=== PATIENT | female | born 1965 | race Caucasian/White ===

== ENCOUNTER 2019-11-26 01:41 | Day surgery (SDC) | payer BC, SELFPAY ==
[2019-11-18 13:53] VITALS: BMI 23.9
--- NOTE | 2019-11-26 11:06 | WPDANESEPPF ---
Anes - Initial Pre Proc Eval Procedure: Operation Date: 11/26/19 12:00 Proposed Procedures p Esophagogastroduodenoscopy - Mayito Francois DO Date/Time: 11/26/19 11:06 Surgeon: Mayito Francois DO Pre Op Diagnosis: Nausea Patient Data Age: 54 Gender: F Height: 5 ft 3 in Weight: 61.3 kg Allergies Allergy/AdvReac Type Severity Reaction Status Date / Time sulfamethoxazole Allergy Intermediate Swelling Verified 11/26/19 11:06 sulfamethizole Allergy Unknown Facial Verified 11/26/19 11:06 swelling trimethoprim Allergy Unknown Facial Verified 11/26/19 11:06 swelling Home Medications Medication Instructions Recorded Confirmed Type alprazolam 0.25 mg tablet 0.25 mg PO BID PRN 09/16/19 11/18/19 History glycopyrrolate 1 mg tablet 1 mg PO BID-TID 09/16/19 11/18/19 History budesonide 3 mg PO DAILY 11/18/19 11/18/19 History estradiol 2 mg PO DAILY 11/18/19 11/18/19 History Patient hx anesthesia problems: post op nausea/vomiting Family hx anesthesia problems: none PMFSH Past Medical History Medical History Fibromyalgia Irritable bowel syndrome Tinea corporis Family History Family History Mother Hypertension Acute myocardial infarction Cerebrovascular accident Family history of malignant neoplasm Father Hypertension Family history of cardiac disorder Grandparent Cerebrovascular accident Family history of congestive heart failure, Onset Age: 84 Social History Social History Smoking status: Never smoker Alcohol intake: never Anes - Eval Final PreProcedure Day of Procedure 11/26/19 11:06 Patient weight: normal Heart: regular rate and rhythm Lungs: clear to auscultation Airway: Mallampati scale class II Neurological: alert and oriented Last oral intake: >/= 8 hours ASA classification: II Emergent: no Anesthetic plan: proceed Anesthesia type and monitoring: general GIVS and standard monitoring Informed Consent: The patient's anesthetic plan and its attendant risks and benefits were discussed with the patient/family/POA. Questions were solicited and answers provided to the satisfaction of the patient/family/POA.
[2019-11-26 11:07] VITALS: BP 133/65; PULSE 66; RESP 16; TEMP 36.8; O2SAT 99; BMI 24.3
[2019-11-26] MEDS: LACTATED RINGERS 1,000 ML 150 ML IV CONT (11:16)
--- NOTE | 2019-11-26 11:21 | PM.IMHP ---
H&P: HPI History of Present Illness Chief complaint: Nausea Narrative: Mecca Aleman is a 54 year old female presents for EGD today. She has new onset nausea. She denies any dysphagia, odynophagia, acid reflux or heartburn. She says this began when she starting having new onset diarrhea. She has previously been diagnosed with lymphocytic colitis in 06/2019 and was controlled on robinol daily. Most recently the diarrhea returned and was placed on budesonide. her diarrhea is better and her BM are back to baseline. She said her nausea has improved somewhat but not the best. She denies abnormal weight loss, fever or chills. She has never had an EGD before. Review of Systems Review of Systems: All systems reviewed & are unremarkable except as noted in HPI and below PMFSH Past Medical History Medical History (Updated 11/26/19 @ 11:25 by Shannan Trejo, TELEVISION STATION MANAGER) Fibromyalgia Irritable bowel syndrome Tinea corporis Surgical History Surgical History (Updated 11/26/19 @ 11:25 by Shannan Trejo, TELEVISION STATION MANAGER) History of ankle surgery Hx of abdominal hysterectomy Hx of appendectomy Hx of colonoscopy Hx of tonsillectomy Family History Family History Mother Hypertension Acute myocardial infarction Cerebrovascular accident Family history of malignant neoplasm Father Hypertension Family history of cardiac disorder Grandparent Cerebrovascular accident Family history of congestive heart failure, Onset Age: 84 Social History Social History Smoking status: Never smoker Alcohol intake: never Meds Home Medications and Allergies Home Medications Medication Instructions Recorded Confirmed Type alprazolam 0.25 mg tablet 0.25 mg PO BID PRN 09/16/19 11/18/19 History glycopyrrolate 1 mg tablet 1 mg PO BID-TID 09/16/19 11/18/19 History budesonide 3 mg PO DAILY 11/18/19 11/18/19 History estradiol 2 mg PO DAILY 11/18/19 11/18/19 History Allergies Allergy/AdvReac Type Severity Reaction Status Date / Time sulfamethoxazole Allergy Intermediate Swelling Verified 11/26/19 11:06 sulfamethizole Allergy Unknown Facial Verified 11/26/19 11:06 swelling trimethoprim Allergy Unknown Facial Verified 11/26/19 11:06 swelling Vital Signs Vital Signs - 24 hr 11/26/19 11:07 Temperature 36.8 C Pulse Rate 66 Respiratory Rate 16 Blood Pressure 133/65 Pulse Oximetry 99 Exam Const: General: cooperative, healthy appearing, comfortable, alert and awake Nutritional Appearance: average body habitus Orientation/consciousness: oriented to person, oriented to place, oriented to time and patient oriented x3 Limitations: no limitations HENMT: Head: normal to inspection and normocephalic Mouth: Yes Normal oral and palatal mucosa present and Yes moist mucous membranes Neck: Neck: normal visual inspection, supple and no JVD Carotids: no bruits Resp: Effort & Inspection: normal respiratory effort and no respiratory distress Auscultation: clear to auscultation bilaterally Cardio: Rate: regular rate Rhythm: regular rhythm Heart sounds: S1 normal heart sound present, S2 normal heart sound present, no gallops, no murmurs and no rubs GI: Inspection: normal to inspection GI Palp: No abdominal tenderness and No No hepatosplenomegaly present Percussion: Yes normal to percussion Auscultation: normal bowel sounds Rectal Exam: deferred Skin: General skin exam: normal color Lesions: no lesions Rashes: no rashes Neuro: General: oriented to person, oriented to place, oriented to time, patient oriented x3 and moves all extremities Cognition (Neuro): normal cognition Speech: normal speech Gait exam (Neuro): Normal gait present Extrem: General: normal to inspection Psych: Appearance: grossly normal Mental Status: mental status grossly normal Speech and movement: Normal speech and movement present Affec
[2019-11-26 13:07] VITALS: BP 109/61; PULSE 72; RESP 17; O2SAT 97
[2019-11-26 13:17] VITALS: BP 122/66; PULSE 67; RESP 17; O2SAT 97
[2019-11-26 13:27] VITALS: BP 132/74; PULSE 64; RESP 17; O2SAT 97
== END 2019-11-26 13:48 | disposition home or self-care (01) ==
PROVIDERS: PCP Family Medicine; Visit Provider Internal Medicine Gastroenterology
PROC: 0DJ08ZZ Inspection of Upper Intestinal Tract, Via Natural or Artificial Opening Endoscopic (ICD-10-PCS; CPT 43235; principal; 2019-11-26 12:00)
DX: R11.0 Nausea (principal); K31.7 Polyp of stomach and duodenum; K58.9 Irritable bowel syndrome, unspecified; M79.7 Fibromyalgia
CPT/HCPCS: 43239; 87081; 88305; J2704; J7120

== ENCOUNTER 2020-11-25 07:32 | Outpatient (CLI) | payer BC, SELFPAY ==
--- NOTE | ~2020-11-25 | US_ITS ---
EXAMINATION: US abdomen complete EXAM DATE: 11/25/2020 08:07 INDICATION: Right upper quadrant pain. TECHNIQUE: Multiple grayscale and Doppler images of the complete abdomen were obtained (by a technolo gist who performed the scan) and subsequently reviewed. There is no prior study for comparison. FINDINGS: The abdominal aorta is normal in caliber. Visualized portion IVC is patent. The pancreatic head a nd body are normal in appearance. The pancreatic tail is not visualized. The liver has normal echogenicity and contour. There are no focal liver lesions identified. There is no evidence of intrahepatic biliary duct dilation. Portal venous flow was seen in the hepatopedal , normal direction and has normal Doppler waveform. Common bile duct measures 4 mm, which is normal. The gallbladder wall is normal in thickness, with ex pected amount of distention. No sonographic evidence of pericholecystic fluid. There is no cholelit hiases. Technologist performing exam reports patient did not demonstrate sonographic Jimenez's sign. Please note that this sign is less reliable in patients who have received pain medication. Right kidney: There is normal contour and echogenicity. It measures 9.7 x 4.8 x 4.2 centimeters. T here are no focal renal lesions identified. There is no hydronephrosis. Left kidney: There is normal contour and echogenicity. It measures 11.2 x 4.9 x 5.5 centimeters. T here are no focal renal lesions identified. There is no hydronephrosis. The spleen measures 8 centimeters and is morphologically normal. IMPRESSION: 1. Unremarkable complete abdominal ultrasound exam. Reviewed, dictated and finalized at location A. ORIAN LITERATURE PROFESSOR
== END 2020-11-25 07:33 | disposition home or self-care (01) ==
PROVIDERS: PCP Family Medicine; Visit Provider Internal Medicine Gastroenterology
DX: R10.11 Right upper quadrant pain (principal)
CPT/HCPCS: 76700

== ENCOUNTER 2021-01-03 11:41 | Outpatient (CLI) | payer BC, SELFPAY ==
--- NOTE | ~2021-01-03 | NM_ITS ---
EXAMINATION: NM hepatobiliary wo pharm DATE: 01/03/2021 14:36 INDICATION: Right upper quadrant abdominal pain. COMPARISON: CT abdomen and pelvis 06/24/2019 TECHNIQUE: 4.9 mCi Tc-99m mebrofenin (Choletec) was administered intravenously. Scintigraphic images of the abdomen were obtained for one hour. Then, the patient drank 8 oz Ensure, and imaging was cont inued for 60 minutes. FINDINGS: There is normal clearance of radiotracer from the blood pool. There is homogeneous tracer u ptake by the liver. Activity progresses to the bowel and gallbladder. Gallbladder ejection fraction (GBEF) was 64%. Note that with this technique, normal GBEF >= 33%. IMPRESSION: 1. Normal hepatobiliary scintigraphy. Reviewed, dictated and finalized at location A. ECTION TELLER
== END 2021-01-03 11:42 | disposition home or self-care (01) ==
PROVIDERS: PCP Family Medicine; Visit Provider Internal Medicine Gastroenterology
DX: R10.11 Right upper quadrant pain (principal)
CPT/HCPCS: 78226; A9537

== ENCOUNTER 2021-01-12 08:58 | Outpatient (CLI) | payer BC, SELFPAY ==
--- NOTE | ~2021-01-12 | MM_ITS ---
EXAMINATION: MM screening [facility] BI w charbel HISTORY: Screening TECHNIQUE: Craniocaudal and mediolateral oblique 3-D tomosynthesis images were obtained and synthetic 2-D images were generated. CAD analysis was submitted and interpreted. COMPARISON: Comparison to multiple prior studies sequentially, with oldest reviewed study dated 04/2013. BREAST PARENCHYMAL COMPOSITION: The breasts are heterogenously dense, which may obscure small masses. FINDINGS: There is a developing mass in the lower outer quadrant of the left breast. The right breast is stable without evidence for malignancy. IMPRESSION: 1. Developing left breast mass, lower outer quadrant overlying the pectoralis muscle posteriorly. 2. Additional mammographic views and possible breast ultrasound are recommended. BI-RADS Category 0: Incomplete: Needs additional imaging evaluation. Reviewed, dictated and finalized at location A. IMPRESSION: 1. Developing left breast mass, lower outer quadrant overlying the pectoralis m uscle posteriorly. 2. Additional mammographic views and possible breast ultrasound are recommended . BI-RADS Category 0: Incomplete: Needs additional imaging evaluation.
== END 2021-01-12 08:59 | disposition home or self-care (01) ==
LOC: ANHIMG 09:00
PROVIDERS: PCP Family Medicine; Visit Provider Obstetrics & Gynecology
DX: Z12.31 Encounter for screening mammogram for malignant neoplasm of breast (principal); R92.8 Other abnormal and inconclusive findings on diagnostic imaging of breast
CPT/HCPCS: 77063; 77067

== ENCOUNTER 2021-02-03 11:29 | Outpatient (CLI) | payer BC, SELFPAY ==
--- NOTE | ~2021-02-03 | MMUS_ITS ---
EXAMINATION: MM diagnostic mammo unilat LT, US breast LT complete HISTORY: Developing left breast mass at lower outer quadrant reported on 01/12/2021 screening mammogra m TECHNIQUE: Additional 3-D tomosynthesis images of the left breast were performed and synthetic 2-D im ages were generated. CAD analysis was submitted and interpreted. High resolution complete left breast ultrasound was performed. COMPARISON: 01/12/2021 bilateral digital screening mammogram 03/21/2018 diagnostic left mammogram and limited left breast ultrasound BREAST PARENCHYMAL COMPOSITION: There are scattered areas of fibroglandular density. FINDINGS: MAMMOGRAPHIC FINDINGS: There is a biopsy marker of the left breast; history of prior benign left breast biopsy. There is posterior density related to prior breast implant no suspicious reproducible mass is evident . No malignant calcification. ULTRASOUND: At 3:00 5 cm from the nipple there is a parallel circumscribed hypoechoic solid lesion with fatty hil us; lesion measures approximately 6.5 x 21.6 x 15 mm. The cortex appears uniform density and thicknes s. The appearance suggests a benign lymph node. 6 month diagnostic left mammogram and left breast ult rasound follow-up are recommended. IMPRESSION: 1. Probably benign findings 2. 6 month diagnostic left mammogram and left breast ultrasound follow-up are recommended. BI-RADS category 3, probably benign findings. Reviewed, dictated and finalized at location A. IMPRESSION: 1. Probably benign findings 2. 6 month diagnostic left mammogram and left breast ultrasound follow-up are r ecommended. BI-RADS category 3, probably benign findings.
== END 2021-02-03 11:30 | disposition home or self-care (01) ==
LOC: ANHIMG 11:30
PROVIDERS: PCP Family Medicine; Visit Provider Obstetrics & Gynecology
DX: R92.8 Other abnormal and inconclusive findings on diagnostic imaging of breast (principal)
CPT/HCPCS: 76641; 77065

== ENCOUNTER 2021-06-20 12:55 | Outpatient (CLI) | payer BC, SELFPAY ==
--- NOTE | ~2021-06-20 | CT_ITS ---
EXAMINATION: CT chest abdomen pelvis w con DATE: 06/20/2021 13:51 INDICATION: Generalized abdominal pain. Abdominal pain radiating to back with fatty foods. Recent lar ge weight loss. TECHNIQUE: Computed tomography (CT) of the chest, abdomen, and pelvis was performed with 100 cc Omnip aque 350 intravenous contrast. Automated exposure control and iterative reconstruction technique were employed. Exam dose: 258.30 mGy-cm total exam DLP. COMPARISON: 11/25/2020 abdominal ultrasound examination 06/24/2019 CT abdomen pelvis FINDINGS: CHEST CT: Normal heart size. No thoracic aortic aneurysm or dissection. The thyroid gland appears normal. No hi lar or mediastinal mass lesion or lymphadenopathy. No pericardial or pleural effusion. No pulmonary i nfiltrate or consolidation. No pulmonary mass lesion is evident. ABDOMEN/PELVIS CT: The liver, spleen, pancreas, gallbladder, bile ducts, pancreatic duct, and adrenal glands and kidneys are unremarkable. Normal caliber of the abdominal aorta. No intraperitoneal or retroperitoneal or pelvic mass lesion or adenopathy or ascites. The urinary bladder appears normal. Status post hysterectomy. There is no evidence of bowel obstruction, bowel wall thickening, pneumatosis or intraperitoneal free air. Small nonspecific amount of free fluid in the dependent pelvis. Severe degenerative disc disease in lower cervical spine. Mild likely chronic loss of height and anterior wedging of T11 and T12 and L1. These may be developme ntal or due to old mild compression fracture deformities. Prominent multilevel degenerative disc disease of the lumbar spine, relatively sparing only L4. There is associated 4 mm-5 retrolisthesis at L2-3 and L3-4. IMPRESSION: Status post hysterectomy Degenerative changes of the cervical, thoracic and lumbar spine Reviewed, dictated and finalized at Location A. Reviewed, dictated and finalized at location A.
== END 2021-06-20 12:56 | disposition home or self-care (01) ==
PROVIDERS: PCP Family Medicine; Visit Provider Nurse Practitioner Family
DX: R10.84 Generalized abdominal pain (principal); R63.4 Abnormal weight loss; M50.30 Other cervical disc degeneration, unspecified cervical region; M51.34 Other intervertebral disc degeneration, thoracic region; M51.36 Other intervertebral disc degeneration, lumbar region
CPT/HCPCS: 71260; 74177; Q9967

== ENCOUNTER 2022-01-20 14:08 | Outpatient (CLI) | payer BC, SELFPAY ==
--- NOTE | ~2022-01-20 | MM_ITS ---
EXAMINATION: MM screening [facility] BI w charbel HISTORY: Screening TECHNIQUE: Craniocaudal and mediolateral oblique 3-D tomosynthesis images were obtained and synthetic 2-D images were generated. CAD analysis was submitted and interpreted. COMPARISON: Comparison to multiple prior studies sequentially, with oldest reviewed study dated 04/15. BREAST PARENCHYMAL COMPOSITION: The breasts are extremely dense, which lowers the sensitivity of mamm ography FINDINGS: There are developing periareolar asymmetries in the right breast. The left breast is stable without evidence for malignancy. IMPRESSION: 1. Developing asymmetries in the periareolar location of the right breast. 2. Additional mammographic views and possible breast ultrasound are recommended. BI-RADS Category 0: Incomplete: Needs additional imaging evaluation. Reviewed, dictated and finalized at location A. IMPRESSION: 1. Developing asymmetries in the periareolar location of the right breast. 2. Additional mammographic views and possible breast ultrasound are recommended . BI-RADS Category 0: Incomplete: Needs additional imaging evaluation.
== END 2022-01-20 14:09 | disposition home or self-care (01) ==
PROVIDERS: PCP Family Medicine; Visit Provider Obstetrics & Gynecology Gynecology
DX: Z12.31 Encounter for screening mammogram for malignant neoplasm of breast (principal); R92.8 Other abnormal and inconclusive findings on diagnostic imaging of breast
CPT/HCPCS: 77063; 77067

== ENCOUNTER 2022-02-23 11:49 | Outpatient (CLI) | payer BC, SELFPAY ==
--- NOTE | ~2022-02-23 | MMUS_ITS ---
EXAMINATION: MM diagnostic [facility] RT w charbel, US breast RT limited HISTORY: Follow-up TECHNIQUE: Additional 3-D tomosynthesis images of the right breast were performed and synthetic 2-D i mages were generated. CAD analysis was submitted and interpreted. High resolution Limited right breas t ultrasound was performed. COMPARISON: Comparison to multiple prior studies sequentially, with oldest reviewed study dated 03/21. BREAST PARENCHYMAL COMPOSITION: The breasts are extremely dense, which lowers the sensitivity of mamm ography FINDINGS: MAMMOGRAPHIC FINDINGS: The subareolar location of the right breast is less dense with spot compression views. No discrete ma ss,, architectural distortion or suspicious calcifications in the right breast. ULTRASOUND: Limited right breast ultrasound: Normal heterogeneous echotexture without focal solid or cystic mass. IMPRESSION: 1. No evidence for malignancy in the right breast. 2. Routine yearly screening mammogram and regular clinical breast examination are recommended. BI-RADS Category 1: Negative Reviewed, dictated and finalized at location A. IMPRESSION: 1. No evidence for malignancy in the right breast. 2. Routine yearly screening mammogram and regular clinical breast examination a re recommended. BI-RADS Category 1: Negative
== END 2022-02-23 11:50 | disposition home or self-care (01) ==
LOC: ANHIMG 11:50
PROVIDERS: PCP Family Medicine; Visit Provider Obstetrics & Gynecology Gynecology
DX: R92.8 Other abnormal and inconclusive findings on diagnostic imaging of breast (principal)
CPT/HCPCS: 76642; 77061; 77065; G0279

== ENCOUNTER → 2023-05-15 09:39 | Outpatient (CLI) | payer BC, SELFPAY ==
--- NOTE | ~2023-05-15 | XR_ITS ---
XR ribs LT 2V w CXR 2V DATE: 05/15/2023 09:53 INDICATION: Left chest pain TECHNIQUE: PA and lateral chest. 3 views of the left ribs. COMPARISON: None FINDINGS: Normal heart size. No hilar or mediastinal enlargement. The lungs are hyperinflated but mo ar of infiltrate or consolidation. No pleural effusion or pulmonary vascular congestion or pneumothor ax. No left rib fracture or bone destruction is detected. There is mild upper thoracic dextroscoliosis and minimal lower left thoracic levoscoliosis. Prominent degenerative disc disease and associated retrolisthesis at two of the included upper lumbar interspaces. IMPRESSION: No left rib fracture Bilateral hyperinflation Scoliosis, degenerative changes of spine Reviewed, dictated and finalized at location L.
== END ==
PROVIDERS: PCP Nurse Practitioner Family; Visit Provider Nurse Practitioner Family
DX: R07.81 Pleurodynia (principal); R91.8 Other nonspecific abnormal finding of lung field; M41.9 Scoliosis, unspecified
CPT/HCPCS: 71046; 71100

== ENCOUNTER 2023-05-23 15:09 | Outpatient (CLI) | payer BC, SELFPAY ==
--- NOTE | ~2023-05-23 | MM_ITS ---
EXAMINATION: MM screening [facility] BI w charbel HISTORY: Screening mammogram TECHNIQUE: Craniocaudal and mediolateral oblique 3-D tomosynthesis images were obtained and synthetic 2-D images were generated. CAD analysis was submitted and interpreted. COMPARISON: 02/03/2022, 01/20/2022, 02/03/2021, 01/12/2021 BREAST PARENCHYMAL COMPOSITION: The breasts are heterogeneously dense, which may obscure small masses . FINDINGS: No suspicious mass, calcification, or architectural distortion are identified in either daniela ast to suggest malignancy. There has been no suspicious interval change. IMPRESSION: 1. No mammographic evidence of malignancy. 2. Recommend routine screening mammography in one year. BI-RADS Category 1: Negative Reviewed, dictated and finalized at location A.
--- NOTE | ~2023-05-23 | DEXA_ITS ---
Bone Density Report Name: ARLYN DONATO Age: 58 Sex: Female Ethnicity: White Date of : 1965 Indication: postmenopausal; screening for osteoporosis; prior fracture; hysterectomy; Referring Provider: KIMBERLY FISHER Study: Bone densitometry was performed. Exam Date: May 23, 2023 Accession number: [id number] Bone Density: Region BMD T-score Z-score Classification AP Spine(L1, L2, L4) 0.905 -1.2 0.2 Osteopenia Femoral Neck (Left) 0.586 -2.4 -1.1 Osteopenia Total Hip (Left) 0.723 -1.8 -0.9 Osteopenia Femoral Neck (Right) 0.646 -1.8 -0.6 Osteopenia Total Hip (Right) 0.704 -1.9 -1.1 Osteopenia Total Hip Mean 0.714 -1.9 -1.0 Osteopenia World Health Organization criteria for BMD impression classify patients as: Normal (T-score at or above -1.0), Osteopenia (T-score between -1.0 and -2.5), or Osteoporosis (T-score at or below -2.5). 10-year Fracture Risk(1): Major Osteoporotic Fracture 15% Hip Fracture 2.9% Reported Risk Factors: [place] (), Neck BMD=0.586, BMI=19.1, previous fracture (1) FRAX(R) Version 3.08. Fracture probability calculated for an untreated patient. Fracture probability may be lower if the patient has received treatment. Clinical Information Provided by Patient: Has had a low trauma fracture Has used the following medications: HRT (i.e. estrogen/hormone therapy) Has the following medical conditions: Hysterectomy Patient maximum height was 61 Menopause Age: 28 Does not regularly consume dairy products Onset of menses at age 10 Number of children 3 Impression: The patient has low bone mass, based on the Left Femoral Neck T-score. The patient has an estimated ten-year risk of hip fracture of 2.9% and an estimated ten-year risk of major fracture of 15%, based on the WHO FRAX algorithm. The patient has risk factors, including: previous fracture. Discussion: BONE DENSITY IS LOW AT ONE OR MORE SKELETAL SITES. This patient's lowest T-score is low at one or more skeletal sites. It meets the World Health Organization's (WHO) criteria for ?low bone mass? (T-score between -1.0 and -2.5). The patient's 10-year risk of fracture as calculated by FRAX is less than the threshold where pharmacological therapy is recommended by the National Osteoporosis Foundation (NOF). However, all treatment decisions require clinical judgment and consideration of individual patient factors, including patient preferences, comorbidities, previous drug use, risk factors not captured in the FRAX model (e.g., frailty, falls, vitamin D deficiency, increased bone turnover, interval significant decline in bone density) and possible under or overestimation of fracture risk by FRAX. The patient should follow a healthful lifestyle (good nutrition with adequate calcium and vitamin D, and appropriate
== END 2023-05-23 15:10 | disposition home or self-care (01) ==
PROVIDERS: PCP Nurse Practitioner Family; Visit Provider Obstetrics & Gynecology Gynecology
DX: Z12.31 Encounter for screening mammogram for malignant neoplasm of breast (principal); Z78.0 Asymptomatic menopausal state; M85.89 Other specified disorders of bone density and structure, multiple sites
CPT/HCPCS: 77063; 77067; 77080

== ENCOUNTER 2023-06-20 19:23 | Emergency (ER) | payer BC, SELFPAY ==
[2023-06-20 19:25] VITALS: BP 125/67; PULSE 96; RESP 14; TEMP 36.5; O2SAT 98
[2023-06-20 20:00] VITALS: BP 116/64; PULSE 82; RESP 14; O2SAT 99
[2023-06-20 20:30] VITALS: BP 106/57; PULSE 78; RESP 15; O2SAT 97
[2023-06-20] MEDS: FAMOTIDINE 20 MG/2 ML VIAL IV PUSH (20:36)
[2023-06-20] MEDS: diphenhydrAMINE HCl INJ 50 MG/ML VIAL IV PUSH (20:37)
[2023-06-20 21:00] VITALS: BP 106/64; PULSE 90; RESP 17; O2SAT 98
--- NOTE | 2023-06-20 22:05 | ED.SKABFB ---
HPI - Skin/Abscess/Foreign Bdy General Chief complaint: Skin/Abscess/Foreign Body Stated complaint: poison juan, difficulty swallowing Time Seen by Provider: 06/20/23 19:34 History of Present Illness HPI narrative: This is a 58-year-old female, who presents to the emergency department complaining of sensation of neck swelling. The patient states she was exposed to either poison juan or premoistened sumac 2 to 3 days ago with rash on the neck. She saw her primary care doctor and was given oral prednisone and a topical corticosteroid cream. This evening, approximately an hour after applying the cream, she felt the sensation of her throat closing. She states she has some difficulty with swallowing, but is able to swallow her saliva. She denies difficulty breathing, lightheadedness, shortness of breath, vomiting or loss of consciousness. She has no other complaints today. Related Data Home Medications Medication Instructions Recorded Confirmed estradiol 2 mg tablet 2 mg PO DAILY 11/18/19 05/15/23 valacyclovir 1 gram tablet 1,000 mg PO .COMPLEX fever blister 07/26/20 05/15/23 (Valtrex) cyanocobalamin (vitamin B-12) 500 mcg PO DAILY 06/08/22 05/15/23 1,000 mcg tablet [id number] 1 cap PO TID 06/08/22 05/15/23 36,000-114,000-180,000 unit capsule,delay rel (Creon) Allergies Allergy/AdvReac Type Severity Reaction Status Date / Time sulfamethoxazole Allergy Intermediate Swelling Verified 06/20/23 19:35 sulfamethizole Allergy Unknown Facial Verified 06/20/23 19:35 swelling trimethoprim Allergy Unknown Facial Verified 06/20/23 19:35 swelling Review of Systems Review of Systems: CONSTITUTIONAL: Denies fever, chills, or sweats. EYES: Denies visual changes, redness, or discharge. ENT: Sensation of closing throat denies rhinorrhea, congestion, sore throat, or otalgia. CARDIOVASCULAR: Denies chest pain, palpitations, or edema. RESPIRATORY: Denies cough or dyspnea. GASTROINTESTINAL: Denies abdominal pain, nausea, vomiting, or diarrhea. GENITOURINARY: Denies dysuria or hematuria. SKIN: Rash over anterior neck denies itching. MUSCULOSKELETAL: Denies back pain, joint pain, or myalgia. NEUROLOGIC: Denies headache, numbness, dizziness, or weakness. PSYCHIATRIC: Denies anxiety or depression. [facility] Past Medical History Medical History Abdominal pain BMI less than 19,adult Body mass index (BMI) of 19.0 to 19.9 in adult Cervical disc disease (06/20/21) severe degenerative disc disease of the lower 3rd cervical spine on CT of the chest on 06/20/2021 Contact dermatitis due to plant COVID-19 (11/16/21) tested positive on 11/17/2021 and already feeling better. Exocrine pancreatic insufficiency Fever blister Fibromyalgia Irritable bowel syndrome Lumbar degenerative disc disease (06/20/21) severe lumbar degenerative disc disease on CT of the abdomen on 06/20/2021 with 4-5 mm retrolisthesis of L2-L3 and L3-L4 Osteopenia after menopause Rib pain on left side Tinea corporis Urinary tract infection Vitamin B12 deficiency anemia Level low at 183 with goal greater than 400 on 05/31/2021. Level low at 233 on 05/09/2022 with hemoglobin 13.8. Vitamin D deficiency, unspecified Weight loss, unintentional Surgical History Surgical History History of ankle surgery Hx of abdominal hysterectomy Hx of appendectomy Hx of colonoscopy Hx of tonsillectomy Family History Family History Mother Hypertension Acute myocardial infarction Cerebrovascular accident Family history of malignant neoplasm Father Hypertension Family history of cardiac disorder Grandparent Cerebrovascular accident Family history of congestive heart failure, Onset Age: 84 Social History Social History Smo
[2023-06-20 22:17] VITALS: BP 102/72; PULSE 86; RESP 16; O2SAT 97
== END 2023-06-20 22:19 | disposition home or self-care (01) ==
PROVIDERS: Emergency Provider Preventive Medicine Aerospace Medicine; PCP Nurse Practitioner Family
DX: R22.1 Localized swelling, mass and lump, neck (principal); K86.81 Exocrine pancreatic insufficiency; K58.9 Irritable bowel syndrome, unspecified; E53.8 Deficiency of other specified B group vitamins; E55.9 Vitamin D deficiency, unspecified; M79.7 Fibromyalgia; M85.80 Other specified disorders of bone density and structure, unspecified site; Z86.16 Personal history of COVID-19; Z87.440 Personal history of urinary (tract) infections; Z90.710 Acquired absence of both cervix and uterus
CPT/HCPCS: 96374; 96375; 99284; J1200

== ENCOUNTER 2024-07-05 09:26 | Outpatient (CLI) | payer BC, SELFPAY ==
--- NOTE | ~2024-07-05 | MM_ITS ---
EXAMINATION: MM screening [facility] BI w charbel HISTORY: Screening mammogram, family history of breast cancer in her mother. TECHNIQUE: Craniocaudal and mediolateral oblique 3-D tomosynthesis images were obtained and synthetic 2-D images were generated. CAD analysis was submitted and interpreted. COMPARISON: 05/23/2023, 02/23/2022, 01/20/2022, 02/03/2021, 01/12/2021, 03/25/2019 BREAST PARENCHYMAL COMPOSITION:Dense: The breasts are extremely dense, which lowers the sensitivity o f mammography. FINDINGS: No suspicious mass, calcification, or architectural distortion are identified in either daniela ast to suggest malignancy. There has been no suspicious interval change. IMPRESSION: No mammographic evidence of malignancy. Recommend routine screening mammography in one year. BI-RADS Category 1: Negative Reviewed, dictated and finalized at location .
== END 2024-07-05 09:27 | disposition home or self-care (01) ==
LOC: ANHIMG 09:29
PROVIDERS: PCP Nurse Practitioner Family; Visit Provider Obstetrics & Gynecology Gynecology
DX: Z12.31 Encounter for screening mammogram for malignant neoplasm of breast (principal)
CPT/HCPCS: 77063; 77067

== ENCOUNTER 2025-08-20 18:51 | Emergency (ER) | payer BC, SELFPAY ==
[2025-08-20] VITALS (7 sets, daily range): BP systolic 135–152; BP diastolic 63–89; PULSE 72–91; RESP 14–20; TEMP 36.8; O2SAT 99–100
--- NOTE | ~2025-08-20 | CT_ITS ---
CT brain wo con HISTORY:stroke, LUE weakness COMPARISON: None. TECHNIQUE: Axial images were obtained of the head without intravenous contrast. FINDINGS: No acute intracranial hemorrhage, mass effect or midline shift. No extra-axial fluid collections. The calvarium is intact. Visualized paranasal sinuses and mastoid air cells are clear. IMPRESSION: No acute intracranial hemorrhage or extra axial fluid collections. All CT scans at this facility are performed using low dose modulation techniques as appropriate to perform exam including the following: automated exposure control; use of iterative reconstruction technique; adjustment of the mA and/or kV according to patient size (this includes techniques or standardized protocols for targeted exams where dose is matched to indication/reason for exam). Reviewed, dictated and finalized at location S. IMPRESSION: No acute intracranial hemorrhage or extra axial fluid collections. All CT scans at this facility are performed using low dose modulation techniqu es as appropriate to perform exam including the following: automated exposure c ontrol; use of iterative reconstruction technique; adjustment of the mA and/or kV according to patient size (this includes techniques or standardized protocol s for targeted exams where dose is matched to indication/reason for exam).
--- NOTE | ~2025-08-20 | CT_ITS ---
REFERENCE: [None available.] TECHNIQUE: Axial mm images of the head and neck were obtained without and with infusion of 100 cc of Isovue 370 of intravenous contrast. Postcontrast 1.25 mm axial images were then obtained. On an independent workstation, 0.625 mm axial images were utilized to render MIP and MPR images of the intracranial circulation. CTA NECK: The aortic arch demonstrates normal caliber and patency. Normal branching pattern is noted of the supraaortic vessels. The origins of the supraaortic vessels are widely patent.. The common carotid and cervical segments of the ICA and ECA demonstrate normal caliber and patency. The vertebral arteries are symmetric in size, demonstrating normal patency. CTA HEAD: The intracranial ICA, WILLIAM, and MCA demonstrate normal caliber and patency. No hemodynamically significant stenosis or aneurysm is identified. The distal vertebral, basilar, and bilateral posterior cerebral arteries demonstrate normal caliber and patency. The superior cerebellar arteries are also widely patent. NONVASCULAR FINDINGS: The soft tissue of the neck is unremarkable. No mass or pathologic enhancement is noted. There is no pathologically enlarged lymphadenopathy. The airway is patent. No acute intracranial hemorrhage, mass, or extraaxial fluid collections are noted. Ventricular size is normal. The skull is intact. The visualized mastoid air cells and sinuses are clear. There is no pathologic enhancement. IMPRESSION: No hemodynamically significant stenosis is noted of the cervical and intracranial arterial vasculature. Reviewed, dictated and finalized at location S. IMPRESSION: No hemodynamically significant stenosis is noted of the cervical and intracrani al arterial vasculature.
--- NOTE | ~2025-08-20 | XR_ITS ---
XR chest 1V portable INDICATION:CVA . REFERENCE: None FINDINGS: A single AP of the chest demonstrates normal heart size. The lungs are clear. There is no evidence of pneumothorax or pleural effusion. IMPRESSION: No acute pulmonary findings. Reviewed, dictated and finalized at location S.
--- OUTSIDE RECORDS SUMMARY | 2025-08-20 18:53 | XMS_ITS | Clinical Summary ---
Author Organization [facility] Address [address] [address] Phone Care Team Providers Care Aircraft Systems Repairer Name Role Phone Kareem Cohen MD Primary Care Provider Allergies Active Allergy Reactions Criticality Noted Date Comments Sulfamethoxazole-Trimethoprim Swelling 2018 Medications estradiol (ESTRACE) 2 MG Tablet TAKE 1 TABLET BY MOUTH ONCE DAILY 9 Active ondansetron (ZOFRAN-ODT) 4 MG TABLET DISPERSIBLE DISSOLVE 1 TABLET IN MOUTH EVERY 8 HOURS NEEDED FOR NAUSEA 10 Tab 3 0 Active ALPRAZolam (XANAX) 0.25 MG Tablet TAKE 1 TABLET BY MOUTH TWICE DAILY NEEDED FOR ANXIETY 1 Active Acetaminophen (TYLENOL PO) Take by mouth. Active Simethicone (GAS-X PO) Take by mouth. Active glycopyrrolate (ROBINUL) 1 MG TabletIndication s:Lymphocytic colitis Take 1 Tablet by mouth 2 times daily. 90 Tablet 3 1 Active Active Problems Problem Noted Date Diagnosed Date Lymphocytic colitis 12/09/2020 Pain, abdominal, RUQ 12/09/2020 Immunizations Immunization Administration Dates Next Due Influenza, Seasonal, Injectable, Undefined 09/12 Family History Medical History Relation Name Comments Colon Cancer Sister Relation Name Status Comments Sister Social History Tobacco Use Types Packs/Day Years Used Date Smoking Tobacco: Never Smokeless Tobacco: Never Tobacco Cessation:Counseling Given: No Alcohol Use Standard Drinks/Week Comments Not Currently 0 (1 standard drink = 0.6 oz pur e alcohol) Sexually Active Control Partners Comments Yes Comments No Sex and Gender Information Value Date Recorded Sex Assigned at Not on file Legal Sex Female 1:43 PM CDT Gender Identity Not on file Sexual Orientation Not on file Last Filed Vital Signs Vital Sign Reading Time Taken Comments Blood Pressure 118/78 12/09/2020 1:00 PM FINANCIAL MANAGEMENT Pulse 60 12/09/2020 1:00 PM FINANCIAL MANAGEMENT Temperature 35.6 C (96 F) 12/09/2020 1:00 PM FINANCIAL MANAGEMENT Respiratory Rate 18 12/09/2020 1:00 PM FINANCIAL MANAGEMENT Oxygen Saturation 97% 12/09/2020 1:00 PM FINANCIAL MANAGEMENT Inhaled Oxygen Concentration - - Weight 60.8 kg (134 lb) 12/09/2020 1:00 PM FINANCIAL MANAGEMENT Height 160 cm (5' 3) 12/09/2020 1:00 PM FINANCIAL MANAGEMENT Body Mass Index 23.74 12/09/2020 1:00 PM FINANCIAL MANAGEMENT Plan of Treatment Health Maintenance Due Date Last Done Comments Hepatitis C Virus (HCV) Screening 1965 TdaP Immunization 1964 Cologuard 2009 Immunochemical Fecal Occult Blood 2009 Pneumococcal Immunization (5 0+ years) (1 of 1 - PCV) 2014 Zoster Immunization (1 of 2) 2014 Influenza Immunization (#1) 2025 09/12/2013 SARS-COV-2 Immunization (3 - season) 2025 06/15/2021, 05/21/2021 Colonoscopy 07/09/2029 07/09/2019 Colorectal Cancer Screening 07/09/2029 Respiratory Syncytial Virus (RSV) Immunization (Adult) (1 - 1-dose 75+ series) 2039 Hepatitis B Immunization Aged Out No longer eligible based on patient's age to complete this topic Human Papillomavirus (HPV) Immunization Aged Out No longer eligible b ased on patient's age to complete this topic Meningococcal Immunization (ACWY) Aged Out No longer eligible b ased on patient's age to complete this topic Rotavirus Immunization Aged Out No lo nger eligible based on patient's age to complete this topic Procedures Procedure Name Priority Date/Time Associated Diagnosis Comments HM COLONOSCOPY Routine 07/09/2019 from Last 3 Months or Most Recently Relevant to Health Maintenance Results * COLONOSCOPY (07/09/2019) Mayito Francois DO PROCEDURE/MINOR SURGICAL ORDERA BLES Final Result from Last 3 Months or Most Recently Relevant to Health Maintenance Insurance Care Teams Aircraft Systems Repairer Relationship Specialty Start Date End Date Kareem Cohen MD [address] [address] PCP - General Family Medicine 04/22/19
--- OUTSIDE RECORDS SUMMARY | 2025-08-20 18:53 | XMS_ITS | Clinical Summary ---
Author Organization [facility] Address [address] [place] [address] Care Team Providers Care Construction Project Engineer Name Role Phone Kareem Cohen MD Primary Care Provider [phone] Source Comments [facility],non-owned Affiliates and Associated Physician Practices is amultiple site organization consisting of ambulatory clinics and hospital sitesin [place], [place], [place] and [place]. This disclosure is being madepursuant to the Care Everywhere program and may not contain all information available regarding this patient. Last updated 18.[facility] Allergies Active Allergy Reactions Criticality Noted Date Comments Sulfamethoxazole W-Trimethoprim Swelling 05/20/2020 Eyes swollen shut. Last taken was 2 years ago. Medications * Be aware that medications may not be up to date on this document. Alwaysverify current medications with the patient. estradiol (ESTRACE) 2 MG tablet 2 mg once daily. Active Active Problems Problem Noted Date Diagnosed Date Dizziness 06/24/2013 Fibromyalgia 06/23/2013 Family History Medical History Relation Name Comments High Blood Pressure Father Hypertension Father High Blood Pressure Mother Hypertension Mother Migraine Sister Relation Name Status Comments Father Alive Mother Alive Sister Social History Tobacco Use Types Packs/Day Years Used Date Smoking Tobacco: Never Smokeless Tobacco: Never Alcohol Use Standard Drinks/Week Comments No 0 (1 standard drink = 0.6 oz pur e alcohol) Comments No Sex and Gender Information Value Date Recorded Sex Assigned at Not on file Legal Sex Female 11:48 AM CDT Gender Identity Not on file Sexual Orientation Not on file Last Filed Vital Signs Vital Sign Reading Time Taken Comments Blood Pressure 115/57 06/21/2015 1:00 PM CDT Pulse 75 06/21/2015 1:00 PM CDT Temperature 36.6 C (97.9 F) 07/01/2015 10:04 AM CDT Respiratory Rate 18 06/21/2015 1:15 PM CDT Oxygen Saturation 99% 06/21/2015 1:00 PM CDT Inhaled Oxygen Concentration - - Weight 67.6 kg (149 lb) 01/18/2017 11:10 AM CDT Height 160 cm (5' 3) 01/18/2017 11:10 AM CDT Body Mass Index 26.39 01/18/2017 11:10 AM CDT Plan of Treatment Health Maintenance Due Date Last Done Comments COLOGUARD (AGES 45-75) - COL ON CA SCREENING 1964 COLON MONITORING 1964 COLONOSCOPY - COLON CA SCREENING 1964 CT COLONOGRAPHY - COLON CA SCREENING 1964 Colorectal Cancer Screening 1964 FIT - COLON CA SCREENING 1964 FLEX SIG - COLON CA SCREENING 1964 LIPID TESTING 1964 HIV SCREENING 1979 HEPATITIS C SCREENING 04/09/1982 DTAP/TDAP/TD VACCINES (1 - Tdap) 1983 PNEUMOCOCCAL VACCINE 50+ (1 of 1 - PCV) 2014 ZOSTER VACCINE (1 of 2) 2014 MAMMOGRAM 12/28/2016 12/28/2014 DEPRESSION SCREENING 10/29/2024 COVID-19 VACCINE (1 - 2023-2 5 season) 2025 INFLUENZA VACCINE (#1) 2025 Respiratory Syncytial Virus (RSV) Vaccine Pt: or over 60 yrs (1 - 1-dose 75+ series) 2039 HEPATITIS B VACCINE Aged Out No longe r eligible based on patient's age to complete this topic HIB VACCINE Aged Out No longer eligi ble based on patient's age to complete this topic HPV VACCINE Aged Out No longer eligi ble based on patient's age to complete this topic MENINGOCOCCAL (Group B) VACC INE SHARED DECISION-MAKING Aged Out No longer eligibl e based on patient's age to complete this topic MENINGOCOCCAL GROUPS A/C/Y/W VACCINE Aged Out No longer eligible b ased on patient's age to complete this topic Procedures Procedure Name Priority Date/Time Associated Diagnosis Comments MAMMO BILAT DIAGNOSTIC Routine 12/28/2014 1:51 PM ELECTROTYPE SERVICER from Last 3 Months or Most Recently Relevant to Health Maintenance Results * MAMMO BILAT DIAGNOSTIC (12/28/2014 1:51 PM ELECTROTYPE SERVICER) Anatomical Region Laterality Modality Bilateral Other Impressions 12/28/2014 2:00 PM ELECTROTYPE SERVICER IMPRESSION: No mammographic evidence of malignancy. BI-RADS Category 1: Negative examination. Return for mammograms in one year or sooner if clinically indicated. Management of a palpable abnormality should be based on clinical grounds. This report was dictated by Tee Hopkins MD (university president) I, Dr. AHSAN LANDON M.D. have personally reviewed and interpreted this examination/study. This report was electronically signed by AHSAN LANDON M.D. on 12/28/2014 2:00 PM . Narrative 12/28/2014 2:00 PM ELECTROTYPE SERVICER Bilateral diagnostic mammogram Date: 12/28/2014 1:51 PM Comparison: Comparison is made with the breast MRI dated 06/03/2014 and with the prior mammogram dated 05/26/2014. More remote prior mammograms have been requested, and images will be reviewed when they become available. An addendum will be issued if there are changes to the interpretation. History: Patient has a high lifetime risk of breast cancer status post benign biopsy of the left breast on 05/26/2014. Risk assessment: Breast cancer lifetime risk was assessed using several models. Lifetime risk using the Tyrer-Cuzick model is calculated at 14.3 %, and using NCI screening tool at 21.6 %. This is considered high lifetime risk. Findings: The bilateral breasts were imaged in the cranial caudal and medial lateral oblique views using full field digital mammography, including Joel displaced views. Bilateral subpectoral silicone breast implants are noted. No suspicious microcalcifications, architectural distortion, or new dominant mass is identified. A biopsy clip is again noted in the left breast. This examination was subjected to CAD analysis. The results of this examination were discussed with the patient by Dr. Landon. Procedure Note Justine Landon MD - 01/26/2018 Bilateral diagnostic mammogram Date: 12/28/2014 1:51 PM Comparison: Comparison is made with the breast MRI dated 06/03/2014 and withthe prior mammogram dated 05/26/2014. More remote prior mammograms havebeen requested, and images will be reviewed when they become available. Anaddendum will be issued if there are changes to the interpretation. History: Patient has a high lifetime risk of breast cancer status postbenign biopsy of the left breast on 05/26/2014. Risk assessment: Breast cancer lifetime risk was assessed using severalmodels. Lifetime risk using the Tyrer-Cuzick model is calculated at 14.3%, and using NCI screening tool at 21.6 %. This is considered highlifetime risk. Findings: The bilateral breasts were imaged in the cranial caudal and medial lateraloblique views using full field digital mammography, including Ecklunddisplaced views. Bilateral subpectoral silicone breast implants are noted. No suspiciousmicrocalcifications, architectural distortion, or new dominant mass isidentified. A biopsy clip is again noted in the left breast. This examination was subjected to CAD analysis. The results of this examination were discussed with the patient by . IMPRESSION IMPRESSION: No mammographic evidence of malignancy. BI-RADS Category 1: Negative examination. Return for mammograms in oneyear or sooner if clinically indicated. Management of a palpable abnormality should be based on clinicalgrounds. This report was dictated by Tee Hopkins MD (university president) I, Dr. AHSAN LANDON M.D. have personally reviewed and interpreted thisexamination/study. This report was electronically signed by AHSAN LANDON M.D. on12/28/2014 2:00 PM . us Historical Provider MAMMO ORDERABLES Final Re sult from Last 3 Months or Most Recently Relevant to Health Maintenance Insurance [employer] Care Teams Construction Project Engineer Relationship Specialty Start Date End Date Kareem Cohen MD PCP - General 07/11/19
--- OUTSIDE RECORDS SUMMARY | 2025-08-20 18:53 | XMS_ITS | Clinical Summary ---
Author Organization [facility] Address [address] [place] [address] [place] [address] Care Team Providers Care Psychological Examiner Name Role Phone Kareem Cohen MD Primary Care Provider [phone] Allergies Active Allergy Reactions Criticality Noted Date Comments Sulfamethoxazole-Trimethoprim Anaphylaxis High 03/27 Medications No known medications Active Problems Problem Noted Date Diagnosed Date Hormone replacement therapy 03/27/2019 Abnormal mammogram 04/04/2018 Abnormal ultrasound of breast 04/04/2018 Lump of left breast 04/04/2018 Family history of breast cancer 04/04/2018 Family History Medical History Relation Name Comments Breast Cancer Maternal Aunt at a ge 52 Breast Cancer Mother alive at age 7 0 Ovarian Cancer Mother Breast Cancer Paternal Aunt at a ge 52 Relation Name Status Comments Maternal Aunt Mother Alive Paternal Aunt Social History Tobacco Use Types Packs/Day Years Used Date Smoking Tobacco: Never Smokeless Tobacco: Never Alcohol Use Standard Drinks/Week Comments No 0 (1 standard drink = 0.6 oz pur e alcohol) Comments No Sex and Gender Information Value Date Recorded Sex Assigned at Not on file Legal Sex Female 10:40 AM CDT Gender Identity Not on file Sexual Orientation Not on file Last Filed Vital Signs Vital Sign Reading Time Taken Comments Blood Pressure 129/73 03/27/2019 8:49 AM CDT Pulse 57 03/27/2019 8:49 AM CDT Temperature 36.8 C (98.3 F) 03/27/2019 8:49 AM CDT Respiratory Rate - - Oxygen Saturation 97% 03/27/2019 8:49 AM CDT Inhaled Oxygen Concentration - - Weight 63.8 kg (140 lb 11.2 oz) 03/27/2019 8:49 AM CDT Height 160 cm (5' 3) 03/27/2019 8:49 AM CDT Body Mass Index 24.92 03/27/2019 8:49 AM CDT Plan of Treatment Health Maintenance Due Date Last Done Comments DTAP/TDAP/TD VACCINES (1 - Tdap) 1983 HPV/Cotest (21-29) 1985 CERVICAL CANCER SCREENING 1994 HPV/Cotest (30-65) 1994 PAP SMEAR 1994 COLORECTAL SCREENING 2009 Colorectal Cancer Screening 2009 FIT-DNA Q 3 years 2009 FIT/FOBT Q 1 year 2009 Flex Sig/CT Colonography Q 5 years 2009 ZOSTER VACCINE (1 of 2) 2014 BREAST CANCER SCREENING 03/25/2020 03/25/2019 INFLUENZA VACCINE (#1) 2025 RSV VACCINE (60+ or ) (1 - 1-dose 75+ series) 2039 Procedures Procedure Name Priority Date/Time Associated Diagnosis Comments MAMMO SCREEN BILAT W OR WO CAD Routine 03/25/2019 Screening for breast cancer from Last 3 Months or Most Recently Relevant to Health Maintenance Results * MAMMO SCREEN BILAT W OR WO CAD (03/25/2019) Anatomical Region Laterality Modality Breast Bilateral Mammography Ana Enriquez DO MAMMO ORDERABLES Final Resu lt from Last 3 Months or Most Recently Relevant to Health Maintenance Insurance PREFERRED Care Teams Psychological Examiner Relationship Specialty Start Date End Date Kareem Cohen MD [facility] [place] [id number] PCP - General Family Practice 03/27/19
--- OUTSIDE RECORDS SUMMARY | 2025-08-20 18:53 | XMS_ITS | Clinical Summary ---
Author Organization [facility] Address [address] [place] [address] Care Team Providers Care Cremator Name Role Phone Kareem Cohen MD Primary Care Provider [phone] Allergies Active Allergy Reactions Criticality Noted Date Comments Sulfamethoxazole-Tri methoprim Anaphylaxis,Swelling High 03/27/2019 Eyes swollen shut. Last taken was 2 years ago. Medications estradioL (ESTRACE) 2 mg tablet Take 2 mg by mouth daily Active ALPRAZolam (XANAX) 0.25 mg tablet Take 0.25 mg by mouth nightly as needed for anxiety Active Active Problems Problem Noted Date Diagnosed Date Anxiety Lymphocytic colitis Surgical History Surgery Date Site/Laterality Comments HYSTERECTOMY W/ BILATERAL SALPINGOOPHORECTOMY ANKLE FRACTURE SURGERY APPENDECTOMY Medical History Medical History Date Comments Anxiety Lymphocytic colitis Family History Medical History Relation Name Comments Ovarian cancer Mother Relation Name Status Comments Mother Social History Tobacco Use Types Packs/Day Years Used Date Smoking Tobacco: Never Personal Safety Answer Date Recorded Getting School Help Needed Not on file 01/12 Comments Unknown Sex and Gender Information Value Date Recorded Sex Assigned at Not on file Legal Sex Female 12:37 PM CDT Gender Identity Not on file Sexual Orientation Not on file Obstetrics History Last Filed Vital Signs Vital Sign Reading Time Taken Comments Blood Pressure 118/74 07/15/2021 1:42 PM CDT Pulse 64 07/15/2021 1:42 PM CDT Temperature 37 C (98.6 F) 07/15/2021 1:42 PM CDT Respiratory Rate - - Oxygen Saturation - - Inhaled Oxygen Concentration - - Weight 45.7 kg (100 lb 12.8 oz) 07/15/2021 1:42 PM CDT Height 156.2 cm (5' 1.5) 07/15/2021 1:42 PM CDT Body Mass Index 18.74 07/15/2021 1:42 PM CDT Plan of Treatment Not on file Insurance [employer] Care Teams Cremator Relationship Specialty Start Date End Date Kareem Cohen MD [address] [address] PCP - General Family Medicine 06/08/21
--- NOTE | 2025-08-20 19:23 | ECG_ITS ---
Test Date: 2025-08-20 19:49:07 Measurements Intervals [place] Rate: 86 P: 61 [place]: 156 QRS: 28 QRSD: 69 T: 34 QT: 341 QTc: 410 Interpretive Statements SINUS RHYTHM LOW QRS VOLTAGE IN PRECORDIAL LEADS CANNOT R/O SEPTAL INFARCT, AGE INDETERMINATE BORDERLINE T WAVE ABNORMALITY- ANT/INF LEADS BASELINE ARTIFACT- I, II, III, AVR, AVL, AVF, V1-V6 ABNORMAL ECG No previous ECG available for comparison Electronically Signed On 08-20-2025 20:58:04 CDT by Nishant Morales D.O.
--- NOTE | 2025-08-20 19:29 | ED_ITS ---
HPI - Dizziness General Chief Complaint: Dizziness Stated Complaint: lightheaded dizzy Time Seen by Provider: 08/20/25 19:09 History of Present Illness HPI Narrative: 60-year-old female with no significant pertinent past medical history. Presents to the emergency department today with complaints of a headache and lightheadedness as well as left arm numbness, decreased sensation left face and left arm, difficulty forming words or speaking. Patient states her stroke like symptoms started at 6:15 p.m. but she has had a headache since this morning. No traumatic injuries. States that she has a global headache and left neck pain and then 1 hour prior to arrival to the emergency department had severe loss of sensation in her left arm minor loss of sensation left-sided face and feeling like her arm is weight and having difficulty lifting it and using it. No history of strokes or TIAs. Does not smoke, no history of diabetes or prediabetes, hypertension. Takes estradiol or supplements for hormone replacement but otherwise no medications chronically. Denies any chiropractic manipulations or recent injuries or trauma. States she has had lightheadedness episodes frequently but the headache is new and she never gets headaches. No previous symptoms similar in the past. Related Data Home Medications ?Medication ?Instructions ?Recorded ?Confirmed ?Last Taken ?Type estradiol 2 mg tablet 2 mg PO DAILY 11/18/1908/1311/25/19 History Allergies Allergy/AdvReac Type Severity Reaction Status Date / Time sulfamethoxazole Allergy Intermediate Swelling Verified 08/20/25 19:49 sulfamethizole Allergy Unknown Facial Verified 08/20/25 19:49 swelling trimethoprim Allergy Unknown Facial Verified 08/20/25 19:49 swelling Review of Systems 2 Review of Systems: As reviewed above in HPI COUNT INCLUDES THE [facility] Past Medical History Medical History Poison juan dermatitis Impacted cerumen, left ear Left ear pain Contact dermatitis due to plant Rib pain on left side Body mass index (BMI) of 19.0 to 19.9 in adult BMI less than 19,adult Exocrine pancreatic insufficiency COVID-19 (11/16/21) tested positive on 11/17/2021 and already feeling better. Lumbar degenerative disc disease (06/20/21) severe lumbar degenerative disc disease on CT of the abdomen on 06/20/2021 with 4-5 mm retrolisthesis of L2-L3 and L3-L4 Cervical disc disease (06/20/21) severe degenerative disc disease of the lower 3rd cervical spine on CT of the chest on 06/20/2021 Osteopenia after menopause Weight loss, unintentional Abdominal pain Vitamin D deficiency, unspecified Vitamin B12 deficiency anemia Level low at 183 with goal greater than 400 on 05/31/2021. Level low at 233 on 05/09/2022 with hemoglobin 13.8. Fever blister Urinary tract infection Irritable bowel syndrome Fibromyalgia Tinea corporis Surgical History Surgical History Hx of abdominal hysterectomy Hx of tonsillectomy History of ankle surgery Hx of appendectomy Hx of colonoscopy Family History Family History Mother Hypertension Acute myocardial infarction Cerebrovascular accident Family history of malignant neoplasm Father Hypertension Family history of cardiac disorder Grandparent Cerebrovascular accident Family history of congestive heart failure, Onset Age: 84 Social History Social History Smoking status: Never smoker Alcohol intake: never Substance use: never Substance use type: does not use Lack of Transportation: No Lack of Food: Never True Current Housing: I Have Housing Concerned About Future Housing: No Difficulty Paying Gas/Electric Bills: No Difficulty Paying for Meds: No Currently Unemployed: No Education: High School Diploma/GED Difficulty w/ Childcare or Family Care: No Exam 2 Narrative: GENERAL: [Well-appearing, well-nourished, and in no acute distress.] HEAD: [Normocephalic, atraumatic.] EYES: [PERRLA and EOMI.] ENT: Nares clear, no rhinorrhea or epistaxis. Mucous membranes moist. NECK: Supple. CHEST: [Clear to auscultation. No respiratory distress.] HEART: [Regular rate and rhythm]. No murmur heard. [Normal peripheral pulses.] ABDOMEN: [Soft, nondistended], [nontender], [No rigidity or guarding] EXTREMITIES: Normal range of motion. [No edema.] SKIN: Warm, dry, no rash. NEURO: Left arm drift against gravity, left arm severe sensory loss, left facial partial sensory loss, no current dysarthria or dysphagia. No facial asymmetries. Contralateral right arm without symptoms. No symptoms of bilateral lower extremities. No ataxia in the arms or legs. Pupils are equal reactive to light. Total NIH 3 PSYCH: [Normal mood and affect.] Course Vital Signs Vital signs: Vital Signs Temperature 36.8 C 08/20/25 19:03 Pulse Rate 79 08/20/25 19:03 Respiratory Rate 17 08/20/25 19:03 Blood Pressure 140/63 08/20/25 19:03 Pulse Oximetry 100 08/20/25 19:03 Oxygen Delivery Room Air 08/20/25 19:03 Temperature 36.8 C 08/20/25 19:39 Pulse Rate 88 08/20/25 20:16 Respiratory Rate 20 08/20/25 20:16 Blood Pressure 143/77 H 08/20/25 20:16 Pulse Oximetry 100 08/20/25 20:16 Oxygen Delivery Room Air 08/20/25 19:03 MDM - Dizziness MDM Narrative Medical decision making narrative: 60-year-old female with no significant pertinent past medical history. Presents to the emergency department today with complaints of a headache and lightheadedness as well as left arm numbness, decreased sensation left face and left arm, difficulty forming words or speaking. Patient states her stroke like symptoms started at 6:15 p.m. but she has had a headache since this morning. No traumatic injuries. States that she has a global headache and left neck pain and then 1 hour prior to arrival to the emergency department had severe loss of sensation in her left arm minor loss of sensation left-sided face and feeling like her arm is weight and having difficulty lifting it and using it. No history of strokes or TIAs. Does not smoke, no history of diabetes or prediabetes, hypertension. Takes estradiol or supplements for hormone replacement but otherwise no medications chronically. Denies any chiropractic manipulations or recent injuries or trauma. States she has had lightheadedness episodes frequently but the headache is new and she never gets headaches. No previous symptoms similar in the past. Left arm drift against gravity, left arm severe sensory loss, left facial partial sensory loss, no current dysarthria or dysphagia. No facial asymmetries. Contralateral right arm without symptoms. No symptoms of bilateral lower extremities. No ataxia in the arms or legs. Pupils are equal reactive to light. NIH 3. Patient is hemodynamically stable with normal vital signs aside from mildly elevated blood pressure 141/73. No tachycardia, fever, hypoxemia. Concern with sudden-onset neurological symptoms about 1 hour ago for stroke versus TIA versus dissection versus thrombosis with her history of estradiol supplement. CT head and CT angiography ordered at this time with stroke protocol being followed. Point of care glucose 99. Last known well 6:15 p.m.. Would be a candidate for thrombolysis based on timeline but awaiting results of imaging . CT head without any signs of bleed, CT angiography without large vessel occlusion or stenosis. Patient re-evaluated and still having symptomatology with current NIH 3. Discussed the case with [facility] Stroke Neurologist Dr. Olmstead who recommended TNK administration and transfer to their hospital. Recommended ER to ER transfer. Patient was accepted to the [facility] emergency department under Dr. Conde. ALS ambulance arranged for transport patient left the department after TNK administration without any further changes in patient status or clinical deterioration. Medical Records Attestation: I reviewed the patient's medical records. Lab Data Attestation: I reviewed the patient's lab results. 08/20/25 19:27 08/20/25 19:27 Labs: Lab Results 08/20/25 08/20/25 Range/Units 19:23 19:27 WBC 7.0 (4.5-10.0) K/mm3 RBC 4.14 L (4.2-5.4) M/mm3 Hgb 13.8 (12.0-15.0) g/dL Hct 41.1 (37.0-47.0) % MCV 99.3 (80-100) fl MCH 33.3 (26-34) pg MCHC 33.6 (32-36) g/dl RDW 12.3 (11.5-14.5) % Plt Count 206 (150-375) k/mm3 MPV 10.6 H (7.4-10.4) fl Immature Gran % (Auto) 0.1 (0-0.5) % Neut % (Auto) 58.7 (45.5-73.1) % Lymph % (Auto) 32.0 (18.3-44.2) % [place] % (Auto) 7.5 (2.6-8.5) % Eos % (Auto) 1.1 (0-4.4) % Baso % (Auto) 0.6 (0.2-1.2) % Lymph # (Auto) 2.25 (0.9-3.2) K/mm3 [place] # (Auto) 0.5 (0.1-0.6) K/mm3 Eos # (Auto) 0.1 (0-0.3) K/mm3 Baso # (Auto) 0.0 (0.0-0.1) K/mm3 Abs Immat Gran (auto) 0.01 (0.00-0.031) K/mm3 Absolute Neuts (auto) 4.1 (1.3-6.7) K/mm3 Absolute Nucleated RBC 0.000 (0.0-0.012) K/mm3 Nucleated RBC % 0.0 (0.0-0.2) % PT 12.0 (11.1-14.7) Seconds INR 0.9 APTT 24.8 (22.3-36.8) Seconds Sodium 139 (137-145) mmol/L Potassium 4.1 (3.4-5.0) mmol/L Chloride 99 (98-107) mmol/L Carbon Dioxide 29 (22-30) mmol/L Anion Gap 11 (4-12) mmol/L BUN 20 H (7-17) mg/dL Creatinine 0.97 (0.7-1.0) mg/dL Estim Creat Clear Calc 39 ml/min Estimated GFR 58 L (59 - ) Glucose 111 H (65-110) mg/dL POC Capillary Glucose 99 (65-105) mg/dl Calcium 10.1 (8.4-10.2) mg/dL Total Bilirubin 0.5 (0.2-1.3) mg/dL AST 27 (14-36) U/L ALT 13 (6-35) U/L Alkaline Phosphatase 53 (38-126) U/L Troponin I < 0.012 (0.000-0.034) ng/mL Total Protein 8.1 (6.3-8.2) g/dL Albumin 4.9 (3.5-5.1) g/dL Ethyl Alcohol Pending Imaging Data Attestation: I personally reviewed and interpreted this imaging study as follows: My impression: Impressions Head CT 08/20/25 19:33 IMPRESSION: No acute intracranial hemorrhage or extra axial fluid collections. All CT scans at this facility are performed using low dose modulation techniques as appropriate to perform exam including the following: automated exposure control; use of iterative reconstruction technique; adjustment of the mA and/or kV according to patient size (this includes techniques or standardized protocols for targeted exams where dose is matched to indication/reason for exam). Head/Neck CTA 08/20/25 19:48 IMPRESSION: No hemodynamically significant stenosis is noted of the cervical and intracranial arterial vasculature. Chest X-Ray 08/20/25 19:59 IMPRESSION: No acute pulmonary findings. Critical Care Time Critical Care Time Critical Care Time: Yes Total Critical Care Time: 40 Discharge Plan Discharge Clinical Impression: Acute ischemic stroke, Left arm weakness, Left arm numbness, Left facial numbness Patient Disposition: Acute Care Hospital Condition: Guarded Prognosis Patient Language: Indonesian Prescriptions: No Action estradiol 2 mg tablet 2 mg PO DAILY alprazolam [Xanax] 0.25 mg tablet 0.25 mg PO BID PRN (Reason: Anxiety) Qty: 60 5RF Follow-up/Referrals: Candelario Day M.D. [Physician, Ear, Nose, Throat] Time of Disposition: 20:31 Quality Stroke Date of last known normal: 08/20/25 Time of last known normal: 18:15 Stroke Scale Stroke Scale 1: Stroke scale date:: 08/20/25 Stroke scale time:: 19:20 1a Level of consciousness: alert-0 1b Level of consciousness questions: answers both correctly-0 1c Level of consciousness commands: obeys both correctly-0 2 Best gaze: normal-0 3 Visual: no visual loss-0 4 Facial palsy: normal-0 5a Motor: left arm: drift-1 5b Motor: right arm: no drift-0 6a Motor: left leg: no drift-0 6b Motor: right leg: no drift-0 7 Limb ataxia: absent-0 8 Sensory: sev total sensory loss-2 9 Best language: no aphasia-0 10 Dysarthria: normal-0 11 Extinction and inattention: no abnormality-0 Level:: 3
[2025-08-20 19:34] LABS: Hematocrit 41.1 % (37.0-47.0); Hemoglobin 13.8 g/dL (12.0-15.0); Immature Granulocyte Percent A 0.1 % (0-0.5); Lymphocytes Absolute Auto 2.25 K/mm3 (0.9-3.2); Mean Corpuscular HGB Conc 33.6 g/dl (32-36); Mean Corpuscular Hemoglobin 33.3 pg (26-34); Mean Corpuscular Volume 99.3 fl (80-100); Nucleated Red Blood Cells Absolute Auto 0.000 K/mm3 (0.0-0.012); Nucleated Red Blood Cells Perc 0.0 % (0.0-0.2); Platelet Count Result 206 k/mm3 (150-375); Red Blood Count 4.14 M/mm3 (4.2-5.4); White Blood Count 7.0 K/mm3 (4.5-10.0)
[2025-08-20 19:45] LABS: INR 0.9; Prothrombin Time 12.0 Seconds (11.1-14.7)
[2025-08-20 19:46] LABS: Partial Thromboplastin Time 24.8 Seconds (22.3-36.8)
[2025-08-20 19:50] LABS: Alanine Aminotransferase 13 U/L (6-35); Albumin Level 4.9 g/dL (3.5-5.1); Alkaline Phosphatase 53 U/L (38-126); Anion Gap 11 mmol/L (4-12); Aspartate Amino Transferase 27 U/L (14-36); Bilirubin,Total 0.5 mg/dL (0.2-1.3); Blood Urea Nitrogen 20 mg/dL (7-17); Calcium 10.1 mg/dL (8.4-10.2); Carbon Dioxide 29 mmol/L (22-30); Chloride 99 mmol/L (98-107); Estimated CRCL calculation 39 ml/min; Estimated Glomerular Filt Rate 58; Glucose 111 mg/dL (65-110); Potassium 4.1 mmol/L (3.4-5.0); Sodium 139 mmol/L (137-145); Total Protein 8.1 g/dL (6.3-8.2)
[2025-08-20 20:01] LABS: Troponin I < 0.012 ng/mL (0.000-0.034)
--- OUTSIDE RECORDS SUMMARY | 2025-08-20 20:08 | XMS_ITS | Clinical Summary ---
Author Organization [facility] Address [address] [place] [id number] Care Team Providers Care Franchise Manager Name Role Phone Kareem Cohen MD Primary Care Provider [phone] Allergies Active Allergy Reactions Criticality Noted Date [...] file Insurance ANTHEM ACCESS CHOICE Care Teams Franchise Manager Relationship Specialty Start Date End Date Kareem Cohen MD [address] [id number] PCP - General Family Medicine 06/08/21
--- OUTSIDE RECORDS SUMMARY | 2025-08-20 20:08 | XMS_ITS | Clinical Summary ---
Author Organization [facility] Address [address] [place] [address] [place] [address] Care Team Providers Care Order Processing Clerk Name Role Phone Kareem Cohen MD Primary Care Provider [phone] Allergies Active Allergy Reactions Criticality Noted Date [...] to Health Maintenance Insurance PREFERRED Care Teams Order Processing Clerk Relationship Specialty Start Date End Date Kareem Cohen MD [facility] [place] [id number] PCP - General Family Practice 03/27/19
--- OUTSIDE RECORDS SUMMARY | 2025-08-20 20:08 | XMS_ITS | Clinical Summary ---
Author Organization [facility] [employer] Address [address] [place] [address] Care Team Providers Care Solar Photovoltaic Electrician Name Role Phone Kareem Cohen MD Primary Care Provider [phone] [facility] [employer],non-owned Affiliates and Associated Physician Practices is amultiple site organization consisting of ambulatory clinics and hospital sitesin [place], [place], [place] and [place]. This disclosure is being madepursuant to the Care Everywhere program and may not contain all information available regarding this patient. Last updated 18.[facility] [employer] Allergies Active Allergy Reactions Criticality Noted Date [...] MAMMO BILAT DIAGNOSTIC Routine 12/28/2014 1:51 PM SOCK KNITTING MACHINE OPERATOR from Last 3 Months or Most Recently Relevant to Health Maintenance Results * MAMMO BILAT DIAGNOSTIC (12/28/2014 1:51 PM SOCK KNITTING MACHINE OPERATOR) Anatomical Region Laterality Modality Bilateral Other Impressions 12/28/2014 2:00 PM SOCK KNITTING MACHINE OPERATOR IMPRESSION: No mammographic evidence of malignancy. BI-RADS Category 1: Negative examination. Return for mammograms in one year or sooner if clinically indicated. Management of a palpable abnormality should be based on clinical grounds. This report was dictated by Tee Hopkins MD (resident care provider) I, Dr. AHSAN LANDON M.D. have personally reviewed and interpreted this examination/study. This report was electronically signed by AHSAN LANDON M.D. on 12/28/2014 2:00 PM . Narrative 12/28/2014 2:00 PM SOCK KNITTING MACHINE OPERATOR Bilateral diagnostic mammogram Date: 12/28/2014 1:51 PM [...] report was dictated by Tee Hopkins MD (resident care provider) I, Dr. AHSAN LANDON M.D. have personally reviewed and interpreted thisexamination/study. This report was electronically signed by AHSAN LANDON M.D. on12/28/2014 2:00 PM . us Historical Provider MAMMO ORDERABLES Final Re sult from Last 3 Months or Most Recently Relevant to Health Maintenance Insurance ANTH ANTH Care Teams Solar Photovoltaic Electrician Relationship Specialty Start Date End Date Kareem Cohen MD PCP - General 07/11/19
[2025-08-20] MEDS: TENECTEPLASE 50 MG/10 ML VIAL 11.5 MG IV PUSH (20:14)
--- NOTE | 2025-08-20 20:15 | PC.NURSE ---
TNK dose witnessed By Sofie ORTIZ. MD Tran spoke with patient prior to medication administration.
== END 2025-08-20 20:48 | disposition short-term general hospital (02) ==
PROVIDERS: Emergency Provider Student in an Organized Health Care Education/Training Program; PCP Family Medicine
DX: I63.9 Cerebral infarction, unspecified (principal); G83.24 Monoplegia of upper limb affecting left nondominant side; R20.0 Anesthesia of skin; R29.703 NIHSS score 3; E55.9 Vitamin D deficiency, unspecified; D51.9 Vitamin B12 deficiency anemia, unspecified; K58.9 Irritable bowel syndrome, unspecified; M85.80 Other specified disorders of bone density and structure, unspecified site; M79.7 Fibromyalgia; Z87.440 Personal history of urinary (tract) infections; Z86.16 Personal history of COVID-19; Z90.710 Acquired absence of both cervix and uterus
CPT/HCPCS: 36415; 70450; 70496; 70498; 71045; 80053; 82077; 82948; 84484; 85025; 85610; 85730; 93005; 96374; 99284; 99285; J3101; Q9967

== ENCOUNTER 2025-09-21 20:07 | Observation (INO) | payer BC, SELFPAY ==
--- NOTE | ~2025-09-21 | XR_ITS ---
EXAMINATION: XR chest 1V portable DATE: 09/21/2025 20:45 INDICATION: Stroke symptoms. TECHNIQUE: A single frontal view of the chest was obtained. COMPARISON: Chest x-ray dated 08/20/2025. FINDINGS: Heart size is normal. Lungs are clear of acute processes. IMPRESSION: 1. No acute pulmonary findings. Reviewed, dictated and finalized at location T. ER TREATING TANK OPERATOR
--- NOTE | ~2025-09-21 | CT_ITS ---
EXAMINATION: CT brain wo con DATE: 09/21/2025 20:20 INDICATION: Stroke protocol. Left leg, right weakness. TECHNIQUE: Computed tomography (CT) of the head was performed without intravenous contrast. The mA was adjusted according to patient size. Iterative reconstruction technique was employed. The dose-length product was 605.33 mGy-cm. COMPARISON: CT head dated 08/20/2025. CTA head and neck dated 08/20/2025 FINDINGS: No acute intracranial bleed. No acute thrombus of the middle cerebral artery. No ventriculomegaly or midline shift. IMPRESSION: 1. No acute intracranial lesions in the CT head without contrast. Findings were conveyed to the attending physician at 8:28 PM. Reviewed, dictated and finalized at location T. UP EDITOR
--- NOTE | ~2025-09-21 | CT_ITS ---
EXAMINATION: CT angiogram head and neck with contrast: DATE: 09/21/2025. INDICATION: Left-sided deficits. TECHNIQUE: CT angiogram was performed with 100 cc of IV contrast. Multiplanar and 3-D reconstruction images obtained. COMPARISON: CT head without contrast dated 09/21/2025. FINDINGS: The vertebral arteries are patent in the neck on both sides. No evidence off hemodynamically significant obstruction of the common and internal carotid arteries are seen in the neck. Vertebral and basilar arteries are patent at the skull base. Posterior cerebral arteries are patent. Intracranial portion of internal carotid arteries are patent on both sides. Anterior cerebral arteries are patent. The middle cerebral arteries are patent. Dural venous sinuses are patent. IMPRESSION: 1. Vertebral are patent in the neck on both sides. No hemodynamically significant obstruction of the carotid arteries are seen in the neck. 2. No obstructive changes of the arteries of [place]. Dural venous sinuses are patent. Reviewed, dictated and finalized at location T. FINISHER IMPRESSION: 1. Vertebral are patent in the neck on both sides. No hemodynamically significa nt obstruction of the carotid arteries are seen in the neck. 2. No obstructive changes of the arteries of [place]. Dural venous sin uses are patent.
--- NOTE | 2025-09-21 20:12 | ECG_ITS ---
Test Date: 2025-09-21 20:34:49 Measurements Intervals [place] Rate: 111 P: 61 CA: 165 QRS: 59 QRSD: 70 T: 57 QT: 298 QTc: 406 Interpretive Statements SINUS TACHYCARDIA LOW QRS VOLTAGE IN PRECORDIAL LEADS SEPTAL MYOCARDIAL INFARCTION , OF INDETERMINATE AGE Electronically Signed On 09-22-2025 05:53:46 [employer] by Burak Monroe D.O
[2025-09-21 20:20] VITALS: BP 130/72; PULSE 98; RESP 16; O2SAT 98
--- NOTE | 2025-09-21 20:20 | ED_ITS ---
HPI - Neuro Symptoms/Deficit General Chief Complaint: Suspected CVA Stated Complaint: feels like i am having a stroke Time Seen by Provider: 09/21/25 20:16 History of Present Illness HPI Narrative: 60-year-old female with recent ischemic stroke with residual left-sided deficits, dysarthria, word-finding difficulties. Patient had a stroke on the 20 of August and was sent to [facility] after receiving TNK. She was in the ICU there for 2 days and evaluated by the stroke team. Started on aspirin and Plavix and had a heart monitor placed for suspected intermittent AFib. Today patient presents to the emergency department with new stroke symptoms suddenly onset 30 minutes prior to arrival. She has her chronic left- sided paresthesias and speech deficits but today noted that her left leg was starting to become weak and having worsening numbness in her left upper extremity and face with asymmetry. speech is around baseline but comes and goes per the . Patient denies any traumatic injuries. She is endorsing left- sided neck pain and some difficulty swallowing now. Feels her heart is racing. Normal blood sugar 131. No chest pain or difficulty in breathing. No nausea, vomiting, vision changes, back pain, abdominal pain. No other blood thinners besides aspirin Plavix. Not a candidate for TNK given her recent ischemic stroke with TNK about 1 month prior. Related Data Home Medications ?Medication ?Instructions ?Recorded ?Confirmed ?Last Taken ?Type estradiol 2 mg tablet 2 mg PO DAILY 11/18/1909/2109/21/25 09:00 History aspirin 81 mg chewable tablet 81 mg PO DAILY 09/21/25 09/21/25 09/21/25 09:00 History atorvastatin 40 mg tablet 40 mg PO QPM 09/21/2509/20/25 21:00 History Allergies Allergy/AdvReac Type Severity Reaction Status Date / Time sulfamethoxazole Allergy Intermediate Swelling Verified 09/21/25 23:59 sulfamethizole Allergy Unknown Facial Verified 09/21/25 23:59 swelling trimethoprim Allergy Unknown Facial Verified 09/21/25 23:59 swelling Review of Systems 2 Review of Systems: as reviewed above in HPI [facility] Past Medical History Medical History Poison juan dermatitis Impacted cerumen, left ear Left ear pain Contact dermatitis due to plant Rib pain on left side Body mass index (BMI) of 19.0 to 19.9 in adult BMI less than 19,adult Exocrine pancreatic insufficiency COVID-19 (11/16/21) tested positive on 11/17/2021 and already feeling better. Lumbar degenerative disc disease (06/20/21) severe lumbar degenerative disc disease on CT of the abdomen on 06/20/2021 with 4-5 mm retrolisthesis of L2-L3 and L3-L4 Cervical disc disease (06/20/21) severe degenerative disc disease of the lower 3rd cervical spine on CT of the chest on 06/20/2021 Osteopenia after menopause Weight loss, unintentional Abdominal pain Vitamin D deficiency, unspecified Vitamin B12 deficiency anemia Level low at 183 with goal greater than 400 on 05/31/2021. Level low at 233 on 05/09/2022 with hemoglobin 13.8. Fever blister Urinary tract infection Irritable bowel syndrome Fibromyalgia Tinea corporis Surgical History Surgical History Hx of abdominal hysterectomy Hx of tonsillectomy History of ankle surgery Hx of appendectomy Hx of colonoscopy Family History Family History Mother Hypertension Acute myocardial infarction Cerebrovascular accident Family history of malignant neoplasm Father Hypertension Family history of cardiac disorder Grandparent Cerebrovascular accident Family history of congestive heart failure, Onset Age: 84 Social History Social History Smoking status: Never smoker Alcohol intake: never Substance use: never Substance use type: does not use Lack of Transportation: No Lack of Food: Never True Current Housing: I Have Housing Concerned About Future Housing: No Difficulty Paying Gas/Electric Bills: No Difficulty Paying for Meds: No Currently Unemployed: No Education: High School Diploma/GED Difficulty w/ Childcare or Family Care: No Spiritual care concerns: No Exam 2 Narrative: GENERAL: dysarthric but not any acute distress. Tearful. HEAD: [Normocephalic, atraumatic.] EYES: [PERRLA and EOMI.] ENT: Nares clear, no rhinorrhea or epistaxis. Mucous membranes moist. NECK: Supple. CHEST: [Clear to auscultation. No respiratory distress.] HEART: Tachycardic rate, 2+ pulses. ABDOMEN: [Soft, nondistended], [nontender], [No rigidity or guarding] EXTREMITIES: Normal range of motion. [No edema.] SKIN: Warm, dry, no rash. NEURO: Severe dysarthria noted, left leg drift, left arm paresthesias and sensation changes, mild left facial droop. Vision intact, alert oriented x3. NIHSS 5 PSYCH: [Normal mood and affect.] Course Vital Signs Vital signs: Vital Signs Pulse Rate 98 09/21/25 20:20 Respiratory Rate 16 09/21/25 20:20 Blood Pressure 130/72 09/21/25 20:20 Pulse Oximetry 98 09/21/25 20:20 Temperature 36.6 C 09/21/25 23:40 Pulse Rate 77 09/22/25 00:00 Respiratory Rate 20 09/21/25 23:40 Blood Pressure 127/63 09/21/25 23:40 Pulse Oximetry 97 09/21/25 23:40 Oxygen Delivery Room Air 09/21/25 23:19 MDM - Neuro Symptoms/Deficit MDM Narrative Medical decision making narrative: 60-year-old female with recent ischemic stroke with residual left-sided deficits, dysarthria, word-finding difficulties. Patient had a stroke on the 20 of August and was sent to [facility] after receiving TNK. She was in the ICU there for 2 days and evaluated by the stroke team. Started on aspirin and Plavix and had a heart monitor placed for suspected intermittent AFib. Today patient presents to the emergency department with new stroke symptoms suddenly onset 30 minutes prior to arrival. She has her chronic left- sided paresthesias and speech deficits but today noted that her left leg was starting to become weak and having worsening numbness in her left upper extremity and face with asymmetry. speech is around baseline but comes and goes per the . Patient denies any traumatic injuries. She is endorsing left- sided neck pain and some difficulty swallowing now. Feels her heart is racing. Normal blood sugar 131. No chest pain or difficulty in breathing. No nausea, vomiting, vision changes, back pain, abdominal pain. No other blood thinners besides aspirin Plavix. Not a candidate for TNK given her recent ischemic stroke with TNK about 1 month prior. Severe dysarthria noted, left leg drift, left arm paresthesias and sensation changes, mild left facial droop. Vision intact, alert oriented x3. NIHSS 5. CT head and CT angiography of the head neck ordered. EKG and cardiac workup ordered. Glucose normal. Patient placed on front desk monitor and pulse oximetry. Will need further care on admission depending on results. CT head without any acute findings. CT angiography without any acute findings. Patient has persistent symptoms worsening from her baseline. Remains hemodynamically stable. EKG shows sinus tachycardia without any dysrhythmia. Laboratory studies unrevealing. Patient will be admitted for MRI, PT, OT and Neurology evaluation. Consult placed. Hospitalist accepted the patient to a telemetry monitored bed. Discussed workup findings and plan of care with the family members and they were comfortable with this. Medical Records Attestation: I reviewed the patient's medical records. Lab Data Attestation: I reviewed the patient's lab results. 09/21/25 20:23 09/21/25 20:23 Labs: Lab Results 09/21/25 09/21/25 Range/Units 20:12 20:23 WBC 8.2 (4.5-10.0) K/mm3 RBC 3.98 L (4.2-5.4) M/mm3 Hgb 13.5 (12.0-15.0) g/dL Hct 39.3 (37.0-47.0) % MCV 98.7 (80-100) fl MCH 33.9 (26-34) pg MCHC 34.4 (32-36) g/dl RDW 12.2 (11.5-14.5) % Plt Count 184 (150-375) k/mm3 MPV 10.1 (7.4-10.4) fl Immature Gran % (Auto) 0.2 (0-0.5) % Neut % (Auto) 49.3 (45.5-73.1) % Lymph % (Auto) 36.3 (18.3-44.2) % Ashley % (Auto) 6.6 (2.6-8.5) % Eos % (Auto) 6.7 H (0-4.4) % Baso % (Auto) 0.9 (0.2-1.2) % Lymph # (Auto) 2.99 (0.9-3.2) K/mm3 Ashley # (Auto) 0.5 (0.1-0.6) K/mm3 Eos # (Auto) 0.6 H (0-0.3) K/mm3 Baso # (Auto) 0.1 (0.0-0.1) K/mm3 Abs Immat Gran (auto) 0.02 (0.00-0.031) K/mm3 Absolute Neuts (auto) 4.1 (1.3-6.7) K/mm3 Absolute Nucleated RBC 0.000 (0.0-0.012) K/mm3 Nucleated RBC % 0.0 (0.0-0.2) % PT 12.6 (11.1-14.7) Seconds INR 0.9 APTT 24.7 (22.3-36.8) Seconds Sodium 139 (137-145) mmol/L Potassium 3.4 (3.4-5.0) mmol/L Chloride 102 (98-107) mmol/L Carbon Dioxide 27 (22-30) mmol/L Anion Gap 10 (4-12) mmol/L BUN 18 H (7-17) mg/dL Creatinine 0.98 (0.7-1.0) mg/dL Estim Creat Clear Calc Not Reportable Estimated GFR 58 L (59 - ) Glucose 129 H (65-110) mg/dL POC Capillary Glucose 131 H (65-105) mg/dl Calcium 9.7 (8.4-10.2) mg/dL Total Bilirubin 0.5 (0.2-1.3) mg/dL AST 28 (14-36) U/L ALT 18 (6-35) U/L Alkaline Phosphatase 48 (38-126) U/L Troponin I < 0.012 (0.000-0.034) ng/mL Total Protein 8.0 (6.3-8.2) g/dL Albumin 4.9 (3.5-5.1) g/dL Imaging Data Attestation: I personally reviewed and interpreted this imaging study as follows: My impression: No acute finding Critical Care Time Critical Care Time Critical Care Time: Yes Total Critical Care Time: 35 Discharge Plan Discharge Clinical Impression: Acute ischemic stroke, History of stroke Patient Disposition: Still a Patient Condition: Stable Quality Stroke Date of last known normal: 09/21/25 Time of last known normal: 19:40 Stroke Scale Stroke Scale 1: Stroke scale date:: 09/21/25 Stroke scale time:: 20:10 1a Level of consciousness: alert-0 1b Level of consciousness questions: answers both correctly-0 1c Level of consciousness commands: obeys both correctly-0 2 Best gaze: normal-0 3 Visual: no visual loss-0 4 Facial palsy: minor paralysis-1 5a Motor: left arm: no drift-0 5b Motor: right arm: no drift-0 6a Motor: left leg: drift-1 6b Motor: right leg: no drift-0 7 Limb ataxia: absent-0 8 Sensory: pinprick less sharp-1 9 Best language: severe aphasia-2 10 Dysarthria: normal-0 11 Extinction and inattention: no abnormality-0 Level:: 5 Comment: NIHSS 2 if accouting for old symptoms of aphasia and numbness
[2025-09-21 20:29] LABS: Hematocrit 39.3 % (37.0-47.0); Hemoglobin 13.5 g/dL (12.0-15.0); Immature Granulocyte Percent A 0.2 % (0-0.5); Lymphocytes Absolute Auto 2.99 K/mm3 (0.9-3.2); Mean Corpuscular HGB Conc 34.4 g/dl (32-36); Mean Corpuscular Hemoglobin 33.9 pg (26-34); Mean Corpuscular Volume 98.7 fl (80-100); Nucleated Red Blood Cells Absolute Auto 0.000 K/mm3 (0.0-0.012); Nucleated Red Blood Cells Perc 0.0 % (0.0-0.2); Platelet Count Result 184 k/mm3 (150-375); Red Blood Count 3.98 M/mm3 (4.2-5.4); White Blood Count 8.2 K/mm3 (4.5-10.0)
[2025-09-21 20:33] VITALS: BP 122/62; PULSE 97; RESP 14; TEMP 36.6; O2SAT 100
[2025-09-21 20:39] LABS: INR 0.9; Prothrombin Time 12.6 Seconds (11.1-14.7)
[2025-09-21 20:40] LABS: Alanine Aminotransferase 18 U/L (6-35); Albumin Level 4.9 g/dL (3.5-5.1); Alkaline Phosphatase 48 U/L (38-126); Anion Gap 10 mmol/L (4-12); Aspartate Amino Transferase 28 U/L (14-36); Bilirubin,Total 0.5 mg/dL (0.2-1.3); Blood Urea Nitrogen 18 mg/dL (7-17); Calcium 9.7 mg/dL (8.4-10.2); Carbon Dioxide 27 mmol/L (22-30); Chloride 102 mmol/L (98-107); Estimated Glomerular Filt Rate 58; Glucose 129 mg/dL (65-110); Partial Thromboplastin Time 24.7 Seconds (22.3-36.8); Potassium 3.4 mmol/L (3.4-5.0); Sodium 139 mmol/L (137-145); Total Protein 8.0 g/dL (6.3-8.2)
--- OUTSIDE RECORDS SUMMARY | 2025-09-21 20:50 | XMS_ITS | Clinical Summary ---
Author Organization [facility] Address [address] [place] [id number] Care Team Providers Care Mine Manager Name Role Phone Kareem Cohen MD Primary Care Provider [phone] Allergies Active Allergy Reactions Criticality Noted Date [...] file Insurance [employer] Care Teams Mine Manager Relationship Specialty Start Date End Date Kareem Cohen MD [address] [address] PCP - General Family Medicine 06/08/21
--- OUTSIDE RECORDS SUMMARY | 2025-09-21 20:50 | XMS_ITS | Clinical Summary ---
Author Organization [facility] Address [address] [place] [address] [place] [address] Care Team Providers Care Hide Mill Worker Name Role Phone Kareem Cohen MD Primary Care Provider [phone] Allergies Active Allergy Reactions Criticality Noted Date [...] to Health Maintenance Insurance PREFERRED Care Teams Hide Mill Worker Relationship Specialty Start Date End Date Kareem Cohen MD [address] [place] [address] PCP - General Family Practice 03/27/19
--- OUTSIDE RECORDS SUMMARY | 2025-09-21 20:50 | XMS_ITS | Clinical Summary ---
Author Organization [facility] [employer] Address [address] [place] [address] Care Team Providers Care Director Of Student Services Name Role Phone Kareem Cohen MD Primary Care Provider [phone] Source Comments [facility] [employer],non-owned Affiliates and Associated Physician Practices is amultiple site organization consisting of ambulatory clinics and hospital sitesin [place], [place], [place] and [place]. This disclosure is being madepursuant to the Care Everywhere program and may not contain all information available regarding this patient. Last updated 18.[facility] [employer] Allergies Active Allergy Reactions Criticality Noted Date Comments Sulfamethoxazole W-Trimethoprim Swelling 05/20/2020 Eyes swollen shut. Last taken was 2 years ago. Medications * Be aware that medications may not be up to date on this document. Alwaysverify current medications with the patient. estradiol (ESTRACE) 2 MG tablet Take 1.5 mg by mouth once daily Active ALPRAZolam (Xanax) 0.25 MG tablet Take 1 (one) tablet by mouth 2 times daily as needed for Anxiety Active atorvastatin (Lipitor) 40 MG tablet Take 1 (one) tablet by mouth at bedtime 30 tablet 2 08/22/2025 Active aspirin (Aspirin) 81 MG chew tablet Take 1 (one) tablet by mouth once daily (chew and swallow) 100 tablet 4 08/22/2025 Active Active Problems Problem Noted Date Diagnosed Date Electrolyte imbalance 08/21/2025 Left-sided weakness 08/20/2025 Encounter for monitoring thrombolytic therapy Dizziness 06/24/2013 Fibromyalgia 06/23/2013 Encounters Date Type Department Care Team Description 09/14/2025 Orders Only [facility] - Neurology [address] [facility] [place] [address] Dulce Maria Aly PA-C Vertigo 08/26/2025 10:00 AM CDT Video Visit [facility] - Neurology [address], [place] [address] Dulce Maria Aly PA-C Cerebrovascular accident (CVA), unspecified mechanism (HCC) ; Hx of ongoing treatment with hormonal therapy; Stroke aborted by administration of thrombolytic agent (HCC) 08/20/2025 9:11 PM CDT - 08/22/2025 1:55 PM CDT Hospital Encounter [facility] [address] [place] [address] Bradley Phipps MD Demars, MD Kris Wan Wilson, MD Neurology Discharge Disposition: Home or Self Care 08/20/2025 Travel from Last 3 Months Family History Medical History Relation Name Comments High Blood Pressure Father Hypertension Father High Blood Pressure Mother Hypertension Mother Migraine Sister Relation Name Status Comments Father Alive Mother Alive Sister Social History Tobacco Use Types Packs/Day Years Used Date Smoking Tobacco: Never Smokeless Tobacco: Never Alcohol Use Standard Drinks/Week Comments Never 0 (1 standard drink = 0.6 oz pur e alcohol) PHQ-2 Answer Date Recorded Patient Health Questionnaire-2 Score 0 08/21/2025 AUDIT-C Answer Date Recorded Q1: How often do you have a drink containing alcohol? Never 08/21/2025 Q2: How many drinks containi ng alcohol do you have on a typical day when you are drinking? Patient does not drink Q3: How often do you have si x or more drinks on one occasion? Never 08/21/2025 Overall Financial Resource Strain (CARDIA) Answe r Date Recorded How hard is it for you to pa y for the very basics like food, housing, medical care, and heating? Not hard at all 08/21/2025 [facility] Occupat ional Health - Occupational Stress Questionnaire Answer Date Recorded Do you feel stress - tense, restless, nervous, or anxious, or unable to sleep at night because your mind is troubled all the time - these days? Only a little 08/21/2025 Hunger Vital Sign Answer Date Recorded Within the past 12 months, y ou worried that your food would run out before you got the money to buy more. Never true 08/21/20 25 Within the past 12 months, t he food you bought just didn't last and you didn't have money to get more. Never true 08/21/2025 PRAPARE - Transportation Answer Date Re corded In the past 12 months, has l ack of transportation kept you from medical appointments or from getting medications? No 07/30 In the past 12 months, has l ack of transportation kept you from meetings, work, or from getting things needed for daily living? No 08/21/2025 Housing Stability Vital Sign Answer Mendez e Recorded In the last 12 months, was t here a time when you were not able to pay the mortgage or rent on time? No 08/21/2025 In the past 12 months, how m any times have you moved where you were living? 0 08/21/2025 At any time in the past 12 m [facility], were you homeless or living in a snf (including now)? No 08/21/2025 Comments No Sex and Gender Information Value Date Recorded Sex Assigned at Not on file Legal Sex Female 11:48 AM CDT Gender Identity Not on file Sexual Orientation Not on file Last Filed Vital Signs Vital Sign Reading Time Taken Comments Blood Pressure 118/66 08/22/2025 1:15 PM CDT Pulse 91 08/22/2025 1:15 PM CDT Temperature 36.8 C (98.3 F) 08/22/2025 5:00 AM CDT Respiratory Rate 12 08/22/2025 1:15 PM CDT Oxygen Saturation 100% 08/22/2025 1:15 PM CDT Inhaled Oxygen Concentration - - Weight 39 kg (85 lb 15.7 oz) 08/22/2025 6:00 AM CDT Height 154.9 cm (5' 1) 08/21/2025 3:00 AM CDT Body Mass Index 16.25 08/21/2025 3:00 AM CDT Plan of Treatment Upcoming Encounters Date Type Department Care Team (Late st Contact Info) Description 11/25/2025 10:00 AM [facility] Video Visit [facility] - Neurology [address] [place] [phone] Dulce Maria Aly PA-C [address] [facility] [address] [place] [phone] Health Maintenance Due Date Last Done Comments COLOGUARD (AGES 45-75) - COL ON CA SCREENING 1965 COLON MONITORING 1965 COLONOSCOPY - COLON CA SCREENING 1965 CT COLONOGRAPHY - COLON CA SCREENING 1965 Colorectal Cancer Screening 1965 FIT - COLON CA SCREENING 1965 FLEX SIG - COLON CA SCREENING 1964 HIV SCREENING 1979 HEPATITIS C SCREENING 04/09/1982 DTAP/TDAP/TD VACCINES (1 - Tdap) 1983 PNEUMOCOCCAL VACCINE 50+ (1 of 1 - PCV) 2014 Respiratory Syncytial Virus (RSV) Vaccine Pt: or over 60 yrs (1 - Risk 50-74 years 1-dose series) 2014 ZOSTER VACCINE (1 of 2) 2014 MAMMOGRAM 03/25/2021 03/25/2019, 12/28/2014 COVID-19 VACCINE (3 - 2024-2 6 season) 2025 06/15/2021, 05/21/2021 INFLUENZA VACCINE (#1) 2025 09/12/2013 DEPRESSION SCREENING Completed 08/20/2025 HEPATITIS B VACCINE Aged Out No longe r eligible based on patient's age to complete this topic HIB VACCINE Aged Out No longer eligi ble based on patient's age to complete this topic HPV VACCINE Aged Out No longer eligi ble based on patient's age to complete this topic MENINGOCOCCAL (Group B) VACCINE SHARED DECISION-MAKING Aged Out No longer eligible based on patient's age to complete this topic MENINGOCOCCAL GROUPS A/C/Y/W VACCINE Aged Out No longer eligible b ased on patient's age to complete this topic Procedures Procedure Name Priority Date/Time Associated Diagnosis Comments CARDIAC EKG ORDER 08/24/2025 11: 40 AM CDT ECHO COMPLETE W BUBBLE STUDY Routine 08/22/2025 11:15 AM CDT Encounter for monitoring thrombolytic therapy Left-sided weakness CBC W/O DIFFERENTIAL Routine 08/22/2025 12:12 AM CDT BASIC METABOLIC PANEL (CALCIUM TOTAL) Routine 08/22/2025 12:12 AM CDT MRI BRAIN WO CONTRAST STAT 08/21/2025 10:41 PM CDT Encounter for monitoring thrombolytic therapy Left-sided weakness CT HEAD WO CONTRAST Routine 08/21/2025 9 :27 PM CDT Encounter for monitoring thrombolytic therapy Left-sided weakness EKG 12-LEAD STAT 08/21/2025 7:12 PM CDT Encounter for monitoring thrombolytic therapy EARLY MOBILITY THROMBO TRPY PT EVAL/TREAT Routine 08/21/2025 5:23 PM CDT EARLY MOBILITY THROMBO TRPY OT EVAL/TREAT Routine 08/21/2025 5:23 PM CDT PT EVAL AND TREAT Routine 08/21/2025 9:1 6 AM CDT OT EVAL AND TREAT Routine 08/21/2025 9:1 6 AM CDT LIPID PROFILE STAT 08/21/2025 3:21 AM CDT CBC W/O DIFFERENTIAL STAT 08/21/2025 3:21 AM CDT BASIC METABOLIC PANEL (CALCIUM TOTAL) STAT 08/21/2025 3:21 AM CDT HEMOGLOBIN A1C Add on 08/21/2025 3:21 AM CDT TROPONIN-I HIGH SENSITIVE REFLEX 1HOUR Timed 08/20/2025 10:53 PM CDT URINE DRUG SCREEN IMMUNOASSAY STAT 08/20/2025 10:40 PM CDT ALCOHOL ETHYL BLOOD STAT 08/20/2025 1 0:32 PM CDT PTT STAT 08/20/2025 10:32 PM CDT PT-INR STAT 08/20/2025 10:32 PM CDT COMPREHENSIVE METABOLIC PANEL STAT 08/20/2025 10:32 PM CDT CBC W AUTO DIFFERENTIAL STAT 08/20/2025 10:32 PM CDT TROPONIN-I HIGH SENSITIVE BASELINE + 1HR STAT 08/20/2025 10:[address] ANGIO BRAIN AND NECK STAT 08/20/2025 9:56 PM CDT Encounter for monitoring thrombolytic therapy GLUCOSE - POINT OF CARE Routine 08/20/2025 9:26 PM CDT PT EVAL AND TREAT Routine 08/20/2025 9:2 0 PM CDT OT EVAL AND TREAT Routine 08/20/2025 9:2 0 PM CDT INR WHOLE BLOOD - POINT OF CARE (IP) STROKE Routine 08/20/2025 9:14 PM CDT MAMMO BILAT DIAGNOSTIC Routine 12/28/2014 1:51 PM [facility] from Last 3 Months or Most Recently Relevant to Health Maintenance Results * CARDIAC EKG ORDER (08/24/2025 11:40 AM CDT) Narrative 08/24/2025 11:40 AM CDT Ordered by an unspecified provider. us Scanned Document CARDIAC SERVICES ORDERABLES Fin al Result * ECHO COMPLETE W BUBBLE STUDY (08/22/2025 11:15 AM CDT) LA vol index 0.018 l/m SSM CV FUJI PACS LV biplane EF 55 % SSM CV FUJI PACS Myocardial strain charge 2 unitless SSM CV FUJI PACS Sinus of Valsalva 2.665 cm SSM CV FUJI PACS IVSd 2D 0.748 cm SSM CV FUJ I PACS LVIDd 3.422 cm SSM CV FUJ I PACS LVIDs 2.514 cm SSM CV FUJ I PACS LVOT diam 1.957 cm SSM CV FUJ I PACS LVPWd 0.71 cm SSM CV FUJ I PACS RV-pritchett basal diam 3.267 cm SSM CV FUJI PACS RVIDd 2.973 cm SSM CV FUJ I PACS RVOT diam Doppler 2.418 cm SSM CV FUJI PACS RVOT pk pa 66.794 cm/s SSM CV F UJI PACS RVOT VTI 13.129 cm SSM CV FUJ I PACS LA size 2.878 cm SSM CV FUJ I PACS LA vol BP 25.317 ml SSM CV FUJ I PACS RA area 8.635 cm SSM CV FUJI PACS MV A pk pa 85.616 cm/s SSM CV F UJI PACS MV E pk pa 73.975 cm/s SSM CV F UJI PACS MV E' lateral pa 11.517 cm/s SSM CV FUJI PACS PV pk pa 77.271 cm/s SSM CV FUJ I PACS PV VTI 13.936 cm SSM CV FUJ I PACS TR pk pa 232.977 cm/s SSM CV FUJ I PACS Ascending aorta 2.743 cm SSM CV FUJI PACS Anatomical Region Laterality Modality Ultrasound 08/22/2025 10:4 5 AM CDT Narrative 08/22/2025 4:57 PM CDT Summary * Technically difficult study. * The left ventricle is normal in size with normal systolic function and an estimated ejection fraction of 55-60% by visual estimate. Left ventricular wall motion is normal. * The left ventricular diastolic function is normal. * Right ventricle is normal in size with normal systolic function. * Agitated saline contrast study at rest and with Valsalva is negative for a shunt. * The pulmonary artery systolic pressure is normal, 22 mmHg. Patient Info Name: Mecca Donato Age: 60 years : 1965 Gender: Female Ht: 61 in Wt: 102 lb BSA: 1.41 m2 HR: 70 bpm BP: 101 / 62 mmHg Heart Rhythm: Sinus Rhythm Exam Date: 08/22/2025 10:45 AM Patient Status: I/P Study Site: [facility] Primary Location: [facility] Info Technical Quality: Adequate Exam Type: ECHO COMPLETE W BUBBLE STUDY Indications Z51.81 - Encounter for monitoring thrombolytic therapy R53.1 - Left-sided weakness Z79.02 - Encounter for monitoring thrombolytic therapy Procedure(s) * A complete 2D, color Doppler, spectral Doppler and M-Mode transthoracic echocardiogram was performed with an Ultrasound Enhancing Agent (UEA). Contrast/Agitated Saline Contrast / Saline: Agitated Saline Amount: 8.00 ml Reaction to Contrast: no Staff Referring Physician: Bradley Phipps Ordering Provider: Bradley Phipps Attending Physician: Bradley Phipps [employer]er[employer] Supervisor: Davina Hollins Left Ventricle Left ventricular systolic function is normal with an estimated ejection fraction of 55-60% by visual estimate. The left ventricle is normal in size. The left ventricular mass is normal. Left ventricular segmental wall motion is normal. The left ventricular diastolic function is normal. Right Ventricle The right ventricle is normal in size. Right ventricular systolic function is normal. Left Atrium The left atrium is normal in size with a left atrial volume index of 18 ml/m2 by BP MOD. Right Atrium The right atrium is normal in size. Atrial Septum Intact interatrial septum visualized by 2D and color Doppler imaging. Agitated saline contrast study at rest and with Valsalva is negative for a shunt. Aortic Valve The aortic valve is trileaflet. There is no aortic valve stenosis. There is no aortic valve regurgitation. Pulmonic Valve The pulmonic valve is not well visualized. There is no pulmonic valve stenosis. There is no clinically significant pulmonic regurgitation. Mitral Valve The mitral valve is normal. There is no mitral valve stenosis. There is mild mitral valve regurgitation. Tricuspid Valve The tricuspid valve is grossly normal. There is no tricuspid valve stenosis. There is no clinically significant tricuspid valve regurgitation. The pulmonary artery systolic pressure is normal, 22 mmHg. Inferior Vena Cava The inferior vena cava is not well visualized and therefore the right atrial pressure is assumed to be 8 mmHg. There is > 50% collapse of the IVC upon inspiration with an estimated right atrial pressure of 0 mmHg. Pericardium/Pleural There is a small pericardial effusion. Aorta The aortic root at the sinus of Valsalva is normal in size measuring 2.7 cm with an index of 1.9 cm/m2. The ascending aorta is normal in size measuring 2.7 cm with an index of 1.9 cm/m2. Measurements Left Ventricular Outflow Tract Name Value Normal LVOT 2D LVOT Diameter 2.0 cm LVOT Area 3.0 cm2 Pulmonic Valve Name Value Normal PV 2D RVOT Diameter (2D) 2.4 cm 1.7-2.7 RVOT Doppler RVOT Peak Velocity 0.7 m/s RVOT Peak Gradient 2 mmHg RVOT Mean Gradient 1 mmHg PV Doppler PV Peak Velocity 0.8 m/s PV Peak Gradient 2 mmHg PV Mean Gradient 1 mmHg PV Area (Cont Eq VTI) 4.32 cm2 PV Area Index (Cont Eq VTI) 3.07 cm2/m2 PV Area (Cont Eq Pa) 4.0 cm2 PV Area Index (Cont Eq Pa) 2.82 cm2/m2 Mitral Valve Name Value Normal MV Diastolic Function MV E Peak Velocity 0.7 m/sec MV A Peak Velocity 0.9 m/sec MV E/A 0.9 MV Decel Time (PW) 198 ms MV A Wave Duration 111 ms MV Annular TDI MV Septal e' Velocity 6 cm/s >=8 MV E/e' (Septal) 12 <=8 MV Lateral e' Velocity 12 cm/s >=10 MV E/e' (Lateral) 6 <=8 MV e' Average 9 cm/s MV E/e' (Average) 9 Tricuspid Valve Name Value Normal TV 2D TV Annulus Diameter (4C) 3.4 cm TV Regurgitation Doppler TR Peak Velocity 2.3 m/s TR Peak Gradient 22 mmHg Estimated PAP/RSVP RA Pressure 0 mmHg <=5 PA Systolic Pressure 22 mmHg <35 RV Systolic Pressure 22 mmHg <36 Aorta Name Value Normal Ascending Aorta Sinus of Valsalva Diameter 2.7 cm 2.4-3.6 Sinus of Valsalva Index 1.9 cm/m2 1.4-2.2 Asc Ao Diameter 2.7 cm 1.9-3.5 Asc Ao Diameter Index 1.9 cm/m2 1.0-2.2 Aortic Valve Name Value Normal AV Regurgitation 2D LVOT Area 3.01 cm2 Ventricles Name Value Normal LV Dimensions 2D/MM IVS Diastolic Thickness (2D) 0.7 cm 0.6-0.9 LVID Diastole (2D) 3.4 cm 3.8-5.2 LVPW Diastolic Thickness (2D) 0.7 cm 0.6-0.9 IVS Systolic Thickness (2D) 0.9 cm LVID Systole (2D) 2.5 cm 2.2-3.5 LVPW Systolic Thickness (2D) 0.9 cm LV Mass (2D Cubed) 57 g 67-162 LV Mass Index (2D Cubed) 41 g/m2 43-95 Relative Wall Thickness (2D) 0.42 <=0.42 LV Fractional Shortening/Ejection Fraction 2D/MM LV Fractional Shortening (2D) 27 % 27-45 LV EF (2D Teicholz) 53 % 54-74 LV EF (BP MOD) 55 % 54-74 RV Dimensions 2D/MM RVID Diastole (2D) 3.0 cm 2.5-3.5 RVID Systole (2D) 2.7 cm RV Basal Diastolic Dimension 3.3 cm 2.5-4.1 RV Diastolic Length (4C) 5.5 cm 5.9-8.3 Atria Name Value Normal LA Dimensions LA Dimension (2D) 2.9 cm 2.7-3.8 LA Dimen Index (2D) 2.0 cm/m2 LA Volume (BP MOD) 25 ml LA Volume Index (BP MOD) 18 ml/m2 16-34 RA Dimensions RA Area (4C) 9 cm2 <=18 RA Area (4C) Index 6 cm2/m2 Report Signatures Finalized by Mikayla Schaeffer on 08/22/2025 04:57 PM Procedure Note Mikayla Schaeffer MD - 08/22/2025 Summary * Technically difficult study. * The left ventricle is normal in size with normal systolic function andan estimated ejection fraction of 55-60% by visual estimate. Leftventricular wall motion is normal. * The left ventricular diastolic function is normal. * Right ventricle is normal in size with normal systolic function. * Agitated saline contrast study at rest and with Valsalva is negativefor a shunt. * The pulmonary artery systolic pressure is normal, 22 mmHg. Patient Info Name: Mecca Donato Age: 60 years : 1965 Gender: Female Ht: 61 in Wt: 102 lb BSA: 1.41 m2 HR: 70 bpm BP: 101 / 62 mmHg Heart Rhythm: Sinus Rhythm Exam Date: 08/22/2025 10:45 AM Patient Status: I/P Study Site: [facility] Technical Quality: Adequate Exam Type: ECHO COMPLETE W BUBBLE STUDY Indications Z51.81 - Encounter for monitoring thrombolytic therapy R53.1 - Left-sided weakness Z79.02 - Encounter for monitoring thrombolytic therapy Procedure(s) * A complete 2D, color Doppler, spectral Doppler and M-Modetransthoracic echocardiogram was performed with an Ultrasound Enhancing Agent (UEA). Contrast/Agitated Saline Contrast / Saline: Agitated Saline Amount: 8.00 ml Reaction to Contrast: no Staff Referring Physician: Bradley Phipps Ordering Provider: Bradley Phipps Attending Physician: Bradley Phipps [employer] Supervisor: Davina Hollins Left Ventricle Left ventricular systolic function is normal with an estimatedejection fraction of 55-60% by visual estimate. The left ventricle is normal insize. The left ventricular mass is normal. Left ventricular segmental wallmotion is normal. The left ventricular diastolic function is normal. Right Ventricle The right ventricle is normal in size. Right ventricular systolicfunction is normal. Left Atrium The left atrium is normal in size with a left atrial volume index of18 ml/m2 by BP MOD. Right Atrium The right atrium is normal in size. Atrial Septum Intact interatrial septum visualized by 2D and color Doppler imaging. Agitated saline contrast study at rest and with Valsalva is negative fora shunt. Aortic Valve The aortic valve is trileaflet. There is no aortic valve stenosis. Thereis no aortic valve regurgitation. Pulmonic Valve The pulmonic valve is not well visualized. There is no pulmonic valve stenosis. There is no clinically significant pulmonic regurgitation. Mitral Valve The mitral valve is normal. There is no mitral valve stenosis. There ismild mitral valve regurgitation. Tricuspid Valve The tricuspid valve is grossly normal. There is no tricuspid valvestenosis. There is no clinically significant tricuspid valve regurgitation. The pulmonary artery systolic pressure is normal, 22 mmHg. Inferior Vena Cava The inferior vena cava is not well visualized and therefore the rightatrial pressure is assumed to be 8 mmHg. There is > 50% collapse of the IVCupon inspiration with an estimated right atrial pressure of 0 mmHg. Pericardium/Pleural There is a small pericardial effusion. Aorta The aortic root at the sinus of Valsalva is normal in size measuring 2.7cm with an index of 1.9 cm/m2. The ascending aorta is normal in sizemeasuring 2.7 cm with an index of 1.9 cm/m2. Measurements Left Ventricular Outflow Tract Name Value Normal LVOT 2D LVOT Diameter 2.0 cm LVOT Area 3.0 cm2 Pulmonic Valve Name Value Normal PV 2D RVOT Diameter (2D) 2.4 cm 1.7-2.7 RVOT Doppler RVOT Peak Velocity 0.7 m/s RVOT Peak Gradient 2 mmHg RVOT Mean Gradient 1 mmHg PV Doppler PV Peak Velocity 0.8 m/s PV Peak Gradient 2 mmHg PV Mean Gradient 1 mmHg PV Area (Cont Eq VTI) 4.32 cm2 PV Area Index (Cont Eq VTI) 3.07 cm2/m2 PV Area (Cont Eq Pa) 4.0 cm2 PV Area Index (Cont Eq Pa) 2.82 cm2/m2 Mitral Valve Name Value Normal MV Diastolic Function MV E Peak Velocity 0.7 m/sec MV A Peak Velocity 0.9 m/sec MV E/A 0.9 MV Decel Time (PW) 198 ms MV A Wave Duration 111 ms MV Annular TDI MV Septal e' Velocity 6 cm/s >=8 MV E/e' (Septal) 12 <=8 MV Lateral e' Velocity 12 cm/s >=10 MV E/e' (Lateral) 6 <=8 MV e' Average 9 cm/s MV E/e' (Average) 9 Tricuspid Valve Name Value Normal TV 2D TV Annulus Diameter (4C) 3.4 cm TV Regurgitation Doppler TR Peak Velocity 2.3 m/s TR Peak Gradient 22 mmHg Estimated PAP/RSVP RA Pressure 0 mmHg <=5 PA Systolic Pressure 22 mmHg <35 RV Systolic Pressure 22 mmHg <36 Aorta Name Value Normal Ascending Aorta Sinus of Valsalva Diameter 2.7 cm 2.4-3.6 Sinus of Valsalva Index 1.9 cm/m2 1.4-2.2 Asc Ao Diameter 2.7 cm 1.9-3.5 Asc Ao Diameter Index 1.9 cm/m2 1.0-2.2 Aortic Valve Name Value Normal AV Regurgitation 2D LVOT Area 3.01 cm2 Ventricles Name Value Normal LV Dimensions 2D/MM IVS Diastolic Thickness (2D) 0.7 cm 0.6-0.9 LVID Diastole (2D) 3.4 cm 3.8-5.2 LVPW Diastolic Thickness (2D) 0.7 cm 0.6-0.9 IVS Systolic Thickness (2D) 0.9 cm LVID Systole (2D) 2.5 cm 2.2-3.5 LVPW Systolic Thickness (2D) 0.9 cm LV Mass (2D Cubed) 57 g 67-162 LV Mass Index (2D Cubed) 41 g/m2 43-95 Relative Wall Thickness (2D) 0.42 <=0.42 LV Fractional Shortening/Ejection Fraction 2D/MM LV Fractional Shortening (2D) 27 % 27-45 LV EF (2D Teicholz) 53 % 54-74 LV EF (BP MOD) 55 % 54-74 RV Dimensions 2D/MM RVID Diastole (2D) 3.0 cm 2.5-3.5 RVID Systole (2D) 2.7 cm RV Basal Diastolic Dimension 3.3 cm 2.5-4.1 RV Diastolic Length (4C) 5.5 cm 5.9-8.3 Atria Name Value Normal LA Dimensions LA Dimension (2D) 2.9 cm 2.7-3.8 LA Dimen Index (2D) 2.0 cm/m2 LA Volume (BP MOD) 25 ml LA Volume Index (BP MOD) 18 ml/m2 16-34 RA Dimensions RA Area (4C) 9 cm2 <=18 RA Area (4C) Index 6 cm2/m2 Report Signatures Finalized by Mikayla Schaeffer on 08/22/2025 04:57 PM us Bradley Phipps MD ECHO CUPID Final Resul t * (ABNORMAL) CBC W/O DIFFERENTIAL (08/22/2025 12:12 AM CDT) Only the most recent of2 resultswithin the time period is included. WBC 9.3 4.0 - 10.7 x10E9/L 08/22/2025 12:31 AM CDT [facility] RBC Count 4.04 3.90 - 5.20 x10E12/L 08/22/2025 12:31 AM [facility] Hemoglobin 13.5 11.9 - 15.8 g/dL 08/22/2025 12:31 AM [facility] Hematocrit 39.9 34.8 - 46.1 % 08/22/2025 12:31 AM [facility] MCV 98.8(H) 80.0 - 98.0 fL 08/22/2025 12:31 AM [facility] MCH 33.4 26.7 - 33.6 pg 08/22/2025 12:31 AM [facility] MCHC 33.8 31.7 - 36.3 g/dL 08/22/2025 12:31 AM [facility] RDW-CV 12.1 11.3 - 14.8 % 08/22/2025 12:31 AM [facility] Platelet Count 200 150 - 420 x10E9/L 08/22/2025 12:31 AM [facility] MPV 10.8 7.8 - 11.4 fL 08/22/2025 12:31 AM [facility] Blood BLOOD SPECIMEN / Unknown Venipuncture / Unknown 08/22/2025 12:12 AM CDT 08/22/2025 12:19 AM CDT us Bradley Phipps MD LAB - HEMATOLOGY ORDERABLES Final Result [facility] [address] [place] [id number], [facility] [phone] * (ABNORMAL) BASIC METABOLIC PANEL (CALCIUM TOTAL) (08/22/2025 12:12 AM CDT) Only the most recent of2 resultswithin the time period is included. BUN 15 7 - 26 mg/dL 08/22/2025 12:54 AM [facility] Creatinine 0.62 0.56 - 0.96 mg/dL 08/22/2025 12:54 AM [facility] Sodium 140 136 - 145 mmol/L 08/22/2025 12:54 AM [facility] Potassium 3.7 3.5 - 4.5 mmol/L 08/22/2025 12:54 AM [facility] Chloride 107 98 - 107 mmol/L 08/22/2025 12:54 AM [facility] CO2 24 22 - 29 mmol/L 08/22/2025 12:54 AM [facility] Glucose 93 70 - 99 mg/dL 08/22/2025 12:54 AM [facility] Calcium 9.7 8.4 - 10.2 mg/dL 08/22/2025 12:54 AM [facility] Anion Gap 9 6 - 16 08/22/2025 12:54 AM [facility] BUN/Creatinine Ratio 24(H) 7 - 23 08/22/2025 12:54 AM [facility] Osmolality Calculated 291 275 - 295 mOsm/kg 08/22/2025 12:54 AM [facility] eGFR by CKD-EPI >90 >=90 mL/min/1.7 3 m2 08/22/2025 12:54 AM [facility] Comment:Estimated Glomerular Filtration Rate (eGFR) calculated using the CKD-EPI Creatinine Equation (2020), per the National Kidney Foundation and [place] [employer] recommendations. Blood BLOOD SPECIMEN / Unknown Venipuncture / Unknown 08/22/2025 12:12 AM CDT 08/22/2025 12:18 AM CDT us Bradley Phipps MD LAB - CHEMISTRY ORDERABLES Final Result Performing Organization Address City/State/[facility] Co de Phone Number [facility] [address] [place] [phone], [facility] [phone] * MRI BRAIN NON CONTRAST (08/21/2025 10:41 PM CDT) Anatomical Region Laterality Modality Head Magnetic Resonan ce 08/22/2025 12:4 0 AM CDT Impressions 08/22/2025 11:34 AM CDT IMPRESSION: 1. No acute infarct, intracranial mass lesion, or hemorrhage. 2. Mild, age appropriate senescent changes. > Dictated by Value Analyst I, Dinorah Heaton MD have personally reviewed and interpreted this examination/study. > Interpreting Provider: Dinorah Heaton MD on 08/22/2025 11:34 AM Narrative 08/22/2025 11:34 AM CDT Focus prelim: Limited evaluation of DWI, ADC, T2 FLAIR and STIR images. No evidence of acute infarct with attention to the previously seen subtle loss of yanez-white matter differentiation in the left temporal lobe. No evidence of hemorrhage. Report dictated by Barbi Irving MD (IR/DR resident). EXAMINATION: Magnetic resonance imaging (MRI) of the brain without contrast HISTORY: Strokelike symptoms. TECHNIQUE: MRI of the brain was performed without administration of intravenous contrast according to standard protocol. COMPARISON: CTA head and neck from 08/20/2025, brain CT from yesterday. FINDINGS: Brain Volume: There is mild cerebral volume loss, in keeping with the patient's age. Parenchyma/Dura: No mass, acute infarct or hemorrhage. Mild scattered punctate foci of T2 hyperintensity are seen in the bilateral frontal lobes and in the left periatrial white matter, often related to chronic microvascular ischemic changes in a patient of this age. Ventricles/Cisterns: No hydrocephalus. No abnormal extra-axial fluid collection or hemorrhage. Orbits: Symmetric and unremarkable. Sella Turcica: The pituitary gland, cavernous sinuses, suprasellar cistern and optic chiasm are unremarkable. IAC: Symmetric and unremarkable. Vasculature: Normal signal flow void is seen in the major arterial structures at the skull base. Sinuses: No acute appearing sinus disease. Bones: No focal pathologic appearing marrow signal changes. Craniocervical Junction: Pannus formation is seen at the craniocervical junction without high-grade spinal canal stenosis. Other: None. Procedure Note Dinorah Heaton MD - 08/22/2025 Focus prelim: Limited evaluation of DWI, ADC, T2 FLAIR and STIR images. No evidence of acute infarct with attention to the previously seensubtle loss of yanez-white matter differentiation in the left temporal lobe. No evidence of hemorrhage. Report dictated by Barbi Irving MD (IR/DR resident). EXAMINATION: Magnetic resonance imaging (MRI) of the brain withoutcontrast HISTORY: Strokelike symptoms. TECHNIQUE: MRI of the brain was performed without administration of intravenous contrast according to standard protocol. COMPARISON: CTA head and neck from 08/20/2025, brain CT from yesterday. FINDINGS: Brain Volume: There is mild cerebral volume loss, in keeping with the patient's age. Parenchyma/Dura: No mass, acute infarct or hemorrhage. Mild scattered punctate foci of T2 hyperintensity are seen in the bilateral frontallobes and in the left periatrial white matter, often related to chronic microvascular ischemic changes in a patient of this age. Ventricles/Cisterns: No hydrocephalus. No abnormal extra-axial fluid collection or hemorrhage. Orbits: Symmetric and unremarkable. Sella Turcica: The pituitary gland, cavernous sinuses, suprasellarcistern and optic chiasm are unremarkable. IAC: Symmetric and unremarkable. Vasculature: Normal signal flow void is seen in the major arterial structures at the skull base. Sinuses: No acute appearing sinus disease. Bones: No focal pathologic appearing marrow signal changes. Craniocervical Junction: Pannus formation is seen at the craniocervical junction without high-grade spinal canal stenosis. Other: None. IMPRESSION: 1. No acute infarct, intracranial mass lesion, or hemorrhage. 2. Mild, age appropriate senescent changes. > Dictated by Value Analyst I, Dinorah Heaton MD have personally reviewed and interpreted this examination/study. > Interpreting Provider: Dinorah Heaton MD on 08/22/2025 11:34 AM us Bradley Phipps MD MR ORDERABLES Final Resul t * CT HEAD NON CONTRAST (08/21/2025 9:27 PM CDT) Anatomical Region Laterality Modality Head Computed Tomogra phy 08/21/2025 10:2 3 PM CDT Impressions 08/21/2025 10:28 PM CDT IMPRESSION: 1. Subtle loss of yanez-white matter differentiation in the left temporal lobe appears similar compared to the CTA head and neck from yesterday. 2. No evidence of acute intracranial hemorrhage or mass effect. > Interpreting Provider: Dinorah Heaton MD on 08/21/2025 10:28 PM Narrative 08/21/2025 10:28 PM CDT PROCEDURE: CT HEAD WO CONTRAST DATE/TIME OF EXAM: 08/21/2025 9:27 PM CLINICAL INFORMATION: None relevant/not provided if blank. Indication: Z51.81: Encounter for monitoring thrombolytic therapy Z79.02: Encounter for monitoring thrombolytic therapy R53.1: Left-sided weakness Additional History: COMPARISON: CTA head and neck from yesterday. TECHNIQUE: Noncontrast CT brain was performed utilizing standard protocol. CT dose reduction technique was used, including Automated Exposure Control. FINDINGS: Parenchyma: No parenchymal hemorrhage. Subtle loss of yanez-white matter differentiation in the left temporal lobe (image 24, series 6) is stable. Extraaxial Spaces: Normal for age. No subdural or epidural collections identified. Ventricles: There is mild cerebral volume loss, in keeping with the patient's age. Orbits: The orbits are symmetric and normal. Sinuses: There is mild mucosal thickening the right maxillary sinus. The mastoid sinuses are clear. Bones: No evidence of fracture or calvarial defect. The temporomandibular joints are well aligned. Other: Mild intracranial atherosclerosis is seen. Procedure Note iDnorah Heaton MD - 08/21/2025 PROCEDURE: CT HEAD WO CONTRAST DATE/TIME OF EXAM: 08/21/2025 9:27 PM CLINICAL INFORMATION: None relevant/not provided if blank. Indication: Z51.81: Encounter for monitoring thrombolytic therapy Z79.02: Encounter for monitoring thrombolytic therapy R53.1: Left-sided weakness Additional History: COMPARISON: CTA head and neck from yesterday. TECHNIQUE: Noncontrast CT brain was performed utilizing standard protocol. CT dose reduction technique was used, including Automated ExposureControl. FINDINGS: Parenchyma: No parenchymal hemorrhage. Subtle loss of yanez-white matter differentiation in the left temporal lobe (image 24, series 6) isstable. Extraaxial Spaces: Normal for age. No subdural or epidural collections identified. Ventricles: There is mild cerebral volume loss, in keeping with the patient's age. Orbits: The orbits are symmetric and normal. Sinuses: There is mild mucosal thickening the right maxillary sinus. The mastoid sinuses are clear. Bones: No evidence of fracture or calvarial defect. Thetemporomandibular joints are well aligned. Other: Mild intracranial atherosclerosis is seen. IMPRESSION: 1. Subtle loss of yanez-white matter differentiation in the left temporal lobe appears similar compared to the CTA head and neck from yesterday. 2. No evidence of acute intracranial hemorrhage or mass effect. > Interpreting Provider: Dinorah Heaton MD on 08/21/2025 10:28 PM us Bradley Phipps MD CT ORDERABLES Final Resul t * EKG 12-Lead (08/21/2025 7:12 PM CDT) Ventricular Rate 80 BPM [facility] Atrial Rate 80 BPM [facility] P-R Interval 166 ms [facility] QRS Duration ms 62 ms [facility] Q-T Interval ms 356 ms [facility] QTC Calculation (Bezet) 410 ms [facility] Calculated P [place] 78 degrees [facility] Calculated R [place] 49 degrees [facility] Calculated T [place] 59 degrees [facility] Interpretation EKG NORMAL SINUS RHYTHM LOW VOLTAGE QRS BORDERLINE ECG NO PREVIOUS ECGS AVAILABLE Confirmed by JHONATAN BARRAZA, KATE ([id number]) on 08/24/2025 7:56:32 AM [facility] M[facility] 08/21/2025 7:12 PM CDT 08/24/2025 7:56 AM CDT us Tej Grant MD ECG ORDERABLES Edited Result - Final [facility] * HEMOGLOBIN A1C (08/21/2025 3:21 AM CDT) Pathologist [facility] Hemoglobin A1c 5.0 <=5.6 % 08/21/2025 9:12 AM CDT [facility] Estimated Average Glucose 97 mg/dL 08/21/2025 9:12 AM CDT [facility] Comment: HbA1c Interpretation: Normal : < 5.7% Pre-diabetes: 5.7-6.4% Diabetes: Equal to or greater than 6.5% Test results diagnostic of diabetes should be repeated for confirmation. Treatment target values recommended by ADA and other clinical organizations should be used to evaluate metabolic control in patients. Reference: [place] [employer] Association, Standards of Care in Diabetes -2020 In patients 70 years and older consider HbA1c target range of 7.0-7.5% (Reference: Long Teresa et al. JAMDA. 2012) The Sebia assay for the measurement of HbA1c is a National Glycohemoglobin Standardization Program (NGSP) certified method. Blood BLOOD SPECIMEN / Unknown Venipuncture / Unknown 08/21/2025 3:21 AM CDT 08/21/2025 3:32 AM CDT Bradley Phipps MD LAB - CHEMISTRY ORDERABLES Final Result Performing Organization Address City/[facility]/ZIP Co de Phone Number [address] [address], [place] [phone] * LIPID PROFILE (08/21/2025 3:21 AM CDT) Cholesterol Total 173 <200 mg/dL 08/21/2025 4:01 AM CDT [facility] HDL 71 >40 mg/dL 08/21/2025 4:01 AM T [facility] Comment: ATP III Classification of HDL Cholesterol: <40 mg/dL: Considered a major risk factor. >60 mg/dL: Considered a negative risk factor. LDL Calculated 93 <100 mg/dL 08/21/2025 4:01 AM T [facility] Comment: ATP III Classification of LDL Cholesterol: <100 mg/dL: Optimal 100 - 129 mg/dL: Near Optimal/Above Optimal 130 - 159 mg/dL: Borderline High 160 - 189 mg/dL: High >190 mg/dL: Very High LDL is calculated using the Friedewald equation. Triglycerides 44 <150 mg/dL 08/21/2025 4:01 AM T [facility] Comment: ATP III Classification of Triglycerides: <150 mg/dL: Normal 150 - 199 mg/dL: Borderline High 200 - 400 mg/dL: High >500 mg/dL: Very High Blood BLOOD SPECIMEN / Unknown Venipuncture / Unknown 08/21/2025 3:21 AM CDT 08/21/2025 3:33 AM CDT us Bradley Phipps MD LAB - CHEMISTRY ORDERABLES Final Result [facility] [address] [place] [phone], [place] [phone] * TROPONIN-I HIGH SENSITIVE REFLEX 1HOUR (08/20/2025 10:53 PM CDT) Troponin I High Sensitive <3 <=14 ng/L 08/20/2025 11:27 PM CDT [facility] Delta Troponin I HS 08/20/2025 11:27 PM T [facility] Comment:Delta value intentio eyad not calculated. Baseline to 1 hour specimen collection interval exceeded. Blood BLOOD SPECIMEN / Unknown Venipuncture / Unknown 08/20/2025 10:53 PM CDT 08/20/2025 10:55 PM CDT Bradley Phipps MD LAB - CHEMISTRY ORDERABLES Final Result [facility] [address] [place] [phone], [facility] [phone] * URINE DRUG SCREEN IMMUNOASSAY (08/20/2025 10:40 PM CDT) Pathologist [facility] Amphetamines Screen Urine Negative Negative: < 1000 ng/mL 08/20/2025 11:10 PM T [facility] Barbiturates Screen Urine Negative Negative: < 200 ng/mL 08/20/2025 11:10 PM [facility] Benzodiazepine Screen Urine Negative Negative: < 200 ng/mL 08/20/2025 11:10 PM [facility] Opiates Urine Negative Negative: < 300 ng/mL 08/20/2025 11:10 PM [facility] Cocaine Metabolites Urine Negative Negative: < 300 ng/mL 08/20/2025 11:10 PM [facility] Phencyclidine Screen Urine Negative Negative: < 25 ng/ml 08/20/2025 11:10 PM [facility] Cannabinoids Screen Urine Negative Negative: <50 ng/mL 08/20/2025 11:10 PM [facility] Methadone Screen Urine Negative Negative: < 300 ng/mL 08/20/2025 11:10 PM [facility] Fentanyl Screen Urine Negative Negative: <1.5 ng/mL 08/20/2025 11:10 PM [facility] Urine URINE / Unknown Collection / Unknown 08/20/2025 10:40 PM CDT 08/20/2025 10:49 PM CDT Narrative [facility] - 08/20/2025 11:10 PM CDT The Urine Toxicology Screening Panel does not screen for Propoxyphene, Meprobamate, Carisoprodol, Trazodone, qchb-tip-inrypiu medications and/or volatiles (Acetone, Isopropanol, Methanol or Ethylene Glycol). Ethanol, Salicylate, Acetaminophen, Tricyclic Antidepressants and several therapeutic drugs may be individually assayed in serum or plasma specimen. Toxicology testing by the [facility] is an aid to medical diagnosis and treatment of patients. No documented chain of custody was maintained. Results are intended to be used for clinical purposes only. us Bradley Phipps MD LAB - URINE CHEMISTRY ORDER OLGA Final Result Performing Organization Address City/[facility]/ZIP Co de Phone Number [address] [address], [place] [phone] * TROPONIN-I HIGH SENSITIVE BASELINE + 1HR (08/20/2025 10:32 PM CDT) Troponin I High Sensitive <3 <=14 ng/L 08/20/2025 11:17 PM CDT [facility] Blood BLOOD SPECIMEN / Unknown Venipuncture / Unknown 08/20/2025 10:32 PM CDT 08/20/2025 10:36 PM CDT Bradley Phipps MD LAB - CHEMISTRY ORDERABLES Final Result Performing Organization Address City/[facility]/ZIP Co de Phone Number [address] [address], [place] [phone] * PTT (08/20/2025 10:32 PM CDT) APTT 25.2 23.0 - 38.4 Seconds 08/20/2025 11:11 PM CDT [facility] Comment:Suggested therapeuti c range for full dose I.V. unfractionated heparin therapy for venous thromboembolism is 71 to 109 seconds. Blood BLOOD SPECIMEN / Unknown Venipuncture / Unknown 08/20/2025 10:32 PM CDT 08/20/2025 10:36 PM CDT Bradley Phipps MD LAB - COAGULATION ORDERABLE S Final Result Performing Organization Address [facility] Co de Phone Number [address] [phone], [facility] [phone] * PT-INR (08/20/2025 10:32 PM CDT) PT 12.5 12.1 - 14.8 Seconds 08/20/2025 11:11 PM CDT [facility] INR 1.0 See Comment 08/20/2025 11:11 PM CDT [facility] Comment:The suggested therap eutic range for standard coumadin (warfarin) therapy is an INR of 2.0-3.0. For high-risk patients (Mechanical Mitral Valve Prosthesis, etc.), the suggested prophylactic therapeutic range is an INR of 2.5-3.5. Blood BLOOD SPECIMEN / Unknown Venipuncture / Unknown 08/20/2025 10:32 PM CDT 08/20/2025 10:36 PM CDT Bradley Phipps MD LAB - COAGULATION ORDERABLE S Final Result Performing Organization Address [facility] Co de Phone Number [address] [address], [facility] [phone] * (ABNORMAL) CBC W AUTO DIFFERENTIAL (08/20/2025 10:32 PM CDT) WBC 8.9 4.0 - 10.7 x10E9/L 08/20/2025 10:39 PM CDT [facility] RBC Count 3.73(L) 3.90 - 5.20 x10E12/L 08/20/2025 10:39 PM CDT [facility] Hemoglobin 12.6 11.9 - 15.8 g/dL 08/20/2025 10:39 PM CDT [facility] Hematocrit 36.1 34.8 - 46.1 % 08/20/2025 10:39 PM CDT [facility] MCV 96.8 80.0 - 98.0 fL 08/20/2025 10:39 PM [facility] MCH 33.8(H) 26.7 - 33.6 pg 08/20/2025 10:39 PM [facility] MCHC 34.9 31.7 - 36.3 g/dL 08/20/2025 10:39 PM [facility] RDW-CV 12.1 11.3 - 14.8 % 08/20/2025 10:39 PM [facility] Platelet Count 187 150 - 420 x10E9/L 08/20/2025 10:39 PM [facility] MPV 10.7 7.8 - 11.4 fL 08/20/2025 10:39 PM [facility] Neutrophil % 74.6(H) 41.0 - 74.0 % 08/20/2025 10:39 PM [facility] Lymphocyte % 18.2 17.0 - 47.0 % 08/20/2025 10:39 PM [facility] Monocyte % 6.1 3.0 - 11.0 % 08/20/2025 10:39 PM [facility] Eosinophil % 0.6 0.0 - 7.0 % 08/20/2025 10:39 PM [facility] Basophil % 0.3 0.0 - 1.6 % 08/20/2025 10:39 PM [facility] Immature Granulocytes % 0.2 0.0 - 1.0 % 08/20/2025 10:39 PM [facility] Neutrophil Absolute 6.65 1.60 - 7.50 x10E9/L 08/20/2025 10:39 PM [facility] Lymphocyte Absolute 1.62 1.00 - 4.40 x10E9/L 08/20/2025 10:39 PM [facility] Monocyte Absolute 0.54 0.15 - 1.00 x10E9/L 08/20/2025 10:39 PM [facility] Eosinophil Absolute 0.05 0.00 - 0.60 x10E9/L 08/20/2025 10:39 PM [facility] Basophil Absolute 0.03 0.00 - 0.13 x10E9/L 08/20/2025 10:39 PM [facility] Blood BLOOD SPECIMEN / Unknown Venipuncture / Unknown 08/20/2025 10:32 PM CDT 08/20/2025 10:36 PM T us Bradley Phipps MD LAB - HEMATOLOGY ORDERABLES Final Result [facility] [address] [place] [phone], [facility] [phone] * (ABNORMAL) COMPREHENSIVE METABOLIC PANEL (08/20/2025 10:32 PM CDT) BUN 21 7 - 26 mg/dL 08/20/2025 11:13 PM [facility] Creatinine 0.78 0.56 - 0.96 mg/dL 08/20/2025 11:13 PM [facility] Sodium 142 136 - 145 mmol/L 08/20/2025 11:13 PM [facility] Potassium 4.0 3.5 - 4.5 mmol/L 08/20/2025 11:13 PM [facility] Chloride 105 98 - 107 mmol/L 08/20/2025 11:13 PM [facility] CO2 27 22 - 29 mmol/L 08/20/2025 11:13 PM [facility] Glucose 108(H) 70 - 99 mg/dL 08/20/2025 11:13 PM [facility] Calcium 9.3 8.4 - 10.2 mg/dL 08/20/2025 11:13 PM [facility] Protein Total 6.8 6.0 - 8.3 g/dL 08/20/2025 11:13 PM [facility] Albumin 4.3 3.4 - 5.0 g/dL 08/20/2025 11:13 PM [facility] Bilirubin Total 0.3 0.2 - 1.2 mg/dL 08/20/2025 11:13 PM [facility] Alkaline Phosphatase 50 40 - 150 U/L 08/20/2025 11:13 PM [facility] ALT 7 5 - 55 U/L 08/20/2025 11:13 PM [facility] AST 15 5 - 34 U/L 08/20/2025 11:13 PM CDT [facility] Anion Gap 10 6 - 16 08/20/2025 11:13 PM T [facility] BUN/Creatinine Ratio 27(H) 7 - 23 08/20/2025 11:13 PM CDT [facility] Osmolality Calculated 298(H) 275 - 295 mOsm/kg 08/20/2025 11:13 PM T [facility] Albumin/Globulin Ratio 1.7 1.1 - 2.3 08/20/2025 11:13 PM T [facility] eGFR by CKD-EPI 86(L) >=90 mL/min/1.7 3 m2 08/20/2025 11:13 PM T [facility] Comment:Estimated Glomerular Filtration Rate (eGFR) calculated using the CKD-EPI Creatinine Equation (2020), per the National Kidney Foundation and [place] [employer]ph[employer] recommendations. Blood BLOOD SPECIMEN / Unknown Venipuncture / Unknown 08/20/2025 10:32 PM CDT 08/20/2025 10:36 PM CDT us Bradley Phipps MD LAB - CHEMISTRY ORDERABLES Final Result [facility] [address] [place] [phone], [facility] [phone] * ALCOHOL ETHYL BLOOD (08/20/2025 10:32 PM CDT) Ethanol (mg/dL) <10 <10 mg/dL 11:13 PM CDT [facility] Ethanol Calculated (g/dL) <0.010 <=0.010 g/dL 08/20/2025 11:13 PM CDT [facility] Blood BLOOD SPECIMEN / Unknown Venipuncture / Unknown 08/20/2025 10:32 PM CDT 08/20/2025 10:36 PM CDT Narrative [facility] - 08/20/2025 11:13 PM CDT Ethanol Interp <10: None Detected. Depression of CLIENT EXECUTIVE: >100 mg/dl Potentially Critical: >250 mg/dl Potentially Fatal >400 mg/dl Ethanol in the patient's blood will contribute to the osmolar gap. Ethanol's contribution to the osmolar gap can be estimated by dividing the concentration of ethanol in mg/dL by 4.6. This test is for clinical use only and does not equal a DICK for legal purposes. us Bradley Phipps MD LAB - CHEMISTRY ORDERABLES Final Result [address] [phone], [facility] [phone] * CT Angio Brain And Neck (08/20/2025 9:56 PM CDT) Anatomical Region Laterality Modality Head Computed Tomogra phy 08/20/2025 10:4 1 PM CDT Impressions 08/21/2025 12:01 AM CDT IMPRESSION: 1.Subtle area of hypoattenuation with loss of yanez-white matter differentiation involving left temporal lobe may represent an acute left MCA territory infarct versus artifact. Further evaluation with a brain MRI is recommended. 2.No acute intracranial hemorrhage, mass effect, or midline shift. 3.No large arterial occlusions or significant stenoses identified in the head or neck. 4.Patent dural venous sinuses. Viz.AI was used for large vessel occlusion detection. The report was drafted by Sandy Obando MD (residential child care counselor) 08/20/2025 10:46 PM. > Dictated by Sandy Obando MD 08/20/2025 10:41 PM > Dictated by Value Analyst I, Dinorah Heaton MD have personally reviewed and interpreted this examination/study. > Interpreting Provider: Dinorah Heaton MD on 08/21/2025 12:01 AM Narrative 08/21/2025 12:01 AM CDT PROCEDURE: CT ANGIO BRAIN AND NECK, DATE/TIME OF EXAM: 08/20/2025 9:57 PM, LOCATION [facility] INDICATION: Z51.81: Encounter for monitoring thrombolytic therapy Z79.02: Encounter for monitoring thrombolytic therapy ADDITIONAL CLINICAL INFORMATION: Ordering Provider Reason For Exam: stroke f/u EXAMINATION: 1. Computed tomographic (CT) angiography of the head without and with contrast 2. CT angiography of the neck with contrast CONTRAST: IOPAMIDOL 76 % IV SOLN:75 mL TECHNIQUE: CT of the head was performed without contrast according to standard protocol. Then CT angiography of the head and neck was obtained after the uneventful administration of 75 mL Isovue-370 intravenous contrast. Three dimensional postprocessing was performed by the technologist and sent to the workstation for review. Stenosis measurements are based on NASCET criteria. CT dose reduction technique was used, including Automated Exposure Control. COMPARISON: No prior study is available for comparison at the time of this dictation. FINDINGS: Non-angiographic findings: Subtle area of hypoattenuation with loss of yanez-white matter differentiation involving left temporal lobe (series 6 image 24) which may represent acute left MCA territory infarct. No acute intra- or extra-axial fluid collections are identified. There is mild cerebral volume loss with associated ex vacuo ventricular dilatation. The basilar cisterns are patent. No mass effect or midline shift is seen. There is vascular calcification of the carotid siphons. The visualized portions of the orbits, paranasal sinuses, and mastoids appear normal. No acute fracture is identified. Moderate to severe degenerative changes are seen in the cervical spine. Angiographic findings: There is mild atherosclerotic disease of the aortic arch. The origins of the great vessels are patent without high-grade stenosis. The right common and internal carotid arteries as well as the right carotid bifurcation appear normal. The left common and internal carotid arteries as well as the left carotid bifurcation appear normal. The cervical vertebral arteries appear normal. The distal internal carotid arteries appear normal. The anterior and middle cerebral arteries appear normal. The distal vertebral arteries appear normal. The basilar artery and posterior cerebral arteries appear normal. No aneurysms, vascular occlusions, or intracranial stenoses are identified. The dural venous sinuses are patent. Procedure Note Dinorah Heaton MD - 08/21/2025 PROCEDURE: CT ANGIO BRAIN AND NECK, DATE/TIME OF EXAM: 08/20/2025 9:57 PM, LOC[facility] Health Care INDICATION: Z51.81: Encounter for monitoring thrombolytic therapy Z79.02: Encounter for monitoring thrombolytic therapy ADDITIONAL CLINICAL INFORMATION: Ordering Provider Reason For Exam: stroke f/u EXAMINATION: 1. Computed tomographic (CT) angiography of the head without and with contrast 2. CT angiography of the neck with contrast CONTRAST: IOPAMIDOL 76 % IV SOLN:75 mL TECHNIQUE: CT of the head was performed without contrast according to standard protocol. Then CT angiography of the head and neck was obtained after the uneventful administration of 75 mL Isovue-370 intravenous contrast. Three dimensional postprocessing was performed by the technologist and sent to the workstation for review. Stenosismeasurements are based on NASCET criteria. CT dose reduction technique was used, including Automated Exposure Control. COMPARISON: No prior study is available for comparison at the time ofthis dictation. FINDINGS: Non-angiographic findings: Subtle area of hypoattenuation with loss of yanez-white matter differentiation involving left temporal lobe (series 6 image 24) whichmay represent acute left MCA territory infarct. No acute intra- or extra-axial fluid collections are identified. There is mild cerebral volume loss with associated ex vacuo ventricular dilatation. The basilar cisterns are patent. No mass effect or midline shift is seen. There is vascular calcification of the carotid siphons. The visualized portions of the orbits, paranasal sinuses, and mastoids appear normal. No acute fracture is identified. Moderate to severe degenerative changes are seen in the cervical spine. Angiographic findings: There is mild atherosclerotic disease of the aortic arch. The origins of the great vessels are patent without high-grade stenosis. The right common and internal carotid arteries as well as the rightcarotid bifurcation appear normal. The left common and internal carotid arteries as well as the leftcarotid bifurcation appear normal. The cervical vertebral arteries appear normal. The distal internal carotid arteries appear normal. The anterior andmiddle cerebral arteries appear normal. The distal vertebral arteries appear normal. The basilar artery and posterior cerebral arteries appearnormal. No aneurysms, vascular occlusions, or intracranial stenoses areidentified. The dural venous sinuses are patent. IMPRESSION: 1.Subtle area of hypoattenuation with loss of yanez-white matter differentiation involving left temporal lobe may represent an acute left MCA territory infarct versus artifact. Further evaluation with a brainMRI is recommended. 2.No acute intracranial hemorrhage, mass effect, or midline shift. 3.No large arterial occlusions or significant stenoses identified in the head or neck. 4.Patent dural venous sinuses. Viz.AI was used for large vessel occlusion detection. The report was drafted by Sandy Obando MD (residential child care counselor) 08/20/2025 10:46 PM. > Dictated by Sandy Obando MD 08/20/2025 10:41 PM > Dictated by Value Analyst I, Dinorah Heaton MD have personally reviewed and interpreted this examination/study. > Interpreting Provider: Dinorah Heaton MD on 08/21/2025 12:01 AM Tej Grant MD CT ORDERABLES Final Result * GLUCOSE - POINT OF CARE (08/20/2025 9:26 PM CDT) Glucose WB/POC 93 70 - 99 mg/dL 08/20/2025 9:31 PM CDT [facility] Specimen Type Arterial/C apillary 08/20/2025 9:31 PM CDT [facility] Blood BLOOD SPECIMEN / Unknown 08/20/2025 9:26 PM CDT 08/20/2025 9:31 PM CDT Bradley Phipps MD LAB - POINT OF CARE ORDERAB LES Final Result [address] [address], [facility] [phone] * INR WHOLE BLOOD - POINT OF CARE (IP) STROKE (08/20/2025 9:14 PM CDT) INR 0.9 0.9 - 1.2 08/20/2025 9:17 PM CDT [facility] Device [id number] 08/20/2025 9:17 PM CDT [facility] Mat [place] ID [id number] 08/20/2025 9:17 PM CDT [facility] Blood BLOOD SPECIMEN / Unknown 08/20/2025 9:14 PM CDT 08/20/2025 9:17 PM CDT us Bradley Phipps MD LAB - POINT OF CARE ORDERAB LES Final Result [address] [address], [place] [phone] * MAMMO BILAT DIAGNOSTIC (12/28/2014 1:51 PM GOLD BURNISHER) Anatomical Region Laterality Modality Bilateral Other Impressions 12/28/2014 2:00 PM GOLD BURNISHER IMPRESSION: No mammographic evidence of malignancy. BI-RADS Category 1: Negative examination. Return for mammograms in one year or sooner if clinically indicated. Management of a palpable abnormality should be based on clinical grounds. This report was dictated by Tee Hopkins MD (president and chief operating officer) I, Dr. AHSAN LANDON M.D. have personally reviewed and interpreted this examination/study. This report was electronically signed by AHSAN LANDON M.D. on 12/28/2014 2:00 PM . Narrative 12/28/2014 2:00 PM GOLD BURNISHER Bilateral diagnostic mammogram Date: 12/28/2014 1:51 PM [...] report was dictated by Tee Hopkins MD (president and chief operating officer) I, Dr. AHSAN LANDON M.D. have personally reviewed and interpreted thisexamination/study. This report was electronically signed by AHSAN LANDON M.D. on12/28/2014 2:00 PM . us Historical Provider MAMMO ORDERABLES Final Re sult from Last 3 Months or Most Recently Relevant to Health Maintenance Insurance [facility] Member Subscriber Plan / Payer (Ef fective 2018-Present) Name:Mecca Donato Relation to Subscriber:Self Name:MECCA DONATO Payer ID:[id number] (NAIC) Type:PPO Address: [facility] [id number] [place] [id number] [employer] Advance Directives * Full Code (Latest Code Status on File) Date Activated Date Inactivated Comments 08/21/2025 3:42 AM 08/22/2025 3:06 PM * Full Code Date Activated Date Inactivated Comments 08/20/2025 9:20 PM 08/21/2025 3:42 AM Care Teams Director Of Student Services Relationship Specialty Start Date End Date Kareem Cohen MD PCP - General 07/11/19
[2025-09-21 20:51] LABS: Troponin I < 0.012 ng/mL (0.000-0.034)
[2025-09-21 22:23] VITALS: BP 117/73; PULSE 101; RESP 14; O2SAT 98
--- NOTE | 2025-09-21 22:55 | WPCEDHO ---
ED Hand Off Checklist All vitals saved:Yes IV Site documented:Yes All med administrations documented:Yes Triage Note Triage Note Pt. ambulatory to ED with 09/21/25 20:33 . LKW 1930 today. Pt. reports sudden onset of numbness to the L . side of her lower lip, L. leg weakness and decreased sensation to L. arm. Pt. presented to [place] on 08/20 and transferred to [facility] with stroke symptoms after receiving TNK. CT and MRI negative for a stroke. Neurology at [facility] still diagnosed her with a stroke. Pt. currently wearing a monitoring engineer for suspicion that she has a-fib which caused her original stroke. Allergies sulfamethoxazole Allergy (Intermediate, Verified 09/21/25 20:45) Swelling sulfamethizole Allergy (Unknown, Verified 09/21/25 20:45) Facial swelling trimethoprim Allergy (Unknown, Verified 09/21/25 20:45) Facial swelling Family History (Last Reviewed 09/21/25 @ 20:24 by Jose Tran MD) Mother Hypertension Acute myocardial infarction Cerebrovascular accident Family history of malignant neoplasm Father Hypertension Family history of cardiac disorder Grandparent Cerebrovascular accident Family history of congestive heart failure Interventions/Assessments IV / Saline Lock, Insert Start: 09/21/25 20:12 Freq: STAT Status: Active Protocol: Document 09/21/25 20:32 KJT (Rec: 09/21/25 20:33 KJT [id number]) IV Assessment Peripheral Access Right Antecubital IV Catheter Access Initiated IV Insertion Date 09/21/25 IV Insertion Time 20:15 Catheter Gauge 18 IV Insertion 1 Attempts Ultrasound Used for No Placement IV Site Assessment WNL IV Care and WNL Maintenance PA: Neurological Assessment Start: 09/21/25 21:55 Freq: Status: Active Protocol: Document 09/21/25 21:55 AMELIA (Rec: 09/21/25 21:56 AMELIA [id number]) Neurological Assessment Level of Alert,Awake Consciousness Arousable to Unable to Arouse Orientation Oriented to Person,Oriented to Place Neurological Dysphasia,Tingling/Numbness Symptoms Hallucination Type None Behavior Anxious,Cooperative Patient Able to Comprehend Comprehension Memory Description Intact [place] Coma Scale Eyes Open Verbal Oriented and Alert Motor Follows Commands [place] Coma Total 15 Score Last Vital Signs Temperature 97.8 F 09/21/25 20:33 Pulse Rate 101 H 09/21/25 22:23 Respiratory Rate 14 09/21/25 22:23 Pulse Oximetry 98 09/21/25 22:23 Blood Pressure 117/73 09/21/25 22:23 Blood Pressure Mean 87 09/21/25 22:23 Blood Pressure Position Sitting 09/21/25 22:23 Oxygen Delivery Room Air 09/21/25 20:33 Weight 50.4 kg 09/21/25 20:33 Last Result - Abnormals Only RBC 3.98 M/mm3 (4.2-5.4) L 09/21/25 20:23 Eos % (Auto) 6.7 % (0-4.4) H 09/21/25 20:23 Eos # (Auto) 0.6 K/mm3 (0-0.3) H 09/21/25 20:23 BUN 18 mg/dL (7-17) H 09/21/25 20:23 Estimated GFR 58 (59-) L 09/21/25 20:23 Glucose 129 mg/dL (65-110) H 09/21/25 20:23 POC Capillary Glucose 131 mg/dl (65-105) H 09/21/25 20:12 Most Recent Suicide Severity Rating Suicide Severity Rating NO RISK INDICATED 09/21/25 20:33
[2025-09-21 22:57] VITALS: BMI 19.8
--- NOTE | 2025-09-21 23:11 | ADMGEN ---
This patient, Mecca Aleman, was admitted to 2 Medical Room 240-01 @ 2310 ,Patient/family oriented to hospital policies and general routines including ID bracelet, bed and alarms, visiting hours, pain management, procedures, bathroom and other care routines, personal items, smoking policy, room service/diet, and visiting hours. Information on how to activate the Rapid Response Team has been discussed. Patient/Family are encouraged to report perceived risks to care and to ask questions if they do not understand what they are told or what they should do.
[2025-09-21 23:40] VITALS: BP 127/63; PULSE 77; RESP 20; TEMP 36.6; O2SAT 97
[2025-09-22] VITALS (9 sets, daily range): BP systolic 107–129; BP diastolic 49–72; PULSE 66–98; RESP 18–20; TEMP 36.7–37.1; O2SAT 98
--- NOTE | 2025-09-22 | ECHO_ITS ---
Patient Info Name: Mecca Aleman Age: 60 years : 1965 Gender: Female Ht: 61 in Wt: 104 lbs BSA: 1.42 m2 HR: 77 bpm BP: 129 / 60 mmHg Technical Quality: Good Exam Date: 09/22/2025 11:08 AM Patient Status: I Admit Date: 09/21/2025 Exam Type: CA echo doppler w bubble study Complete two-dimensional, color flow and Doppler transthoracic echocardiogram is performed with agitated saline. Staff Referring Physician: Jose Tran Steamblaster: Ta Benjamin III Attending Provider: Ailin Dennison DO Contrast/Agitated Saline Contrast/Ag. Saline: Agitated Saline Amount: 16.00 ml Existing IV Access: Yes IV Access Condition: patent with no signs of infiltration Summary 1. Left ventricular chamber dimension is normal. 2. Left ventricular systolic function is normal, estimated at 60-65. 3. The left ventricular diastolic function is grade I diastolic dysfunction. 4. E/e' 6 is not elevated. 5. There is mild mitral valve regurgitation. Left Ventricle E/e' 6 is not elevated. Left ventricular chamber dimension is normal. Left ventricular systolic function is normal, estimated at 60-65. The left ventricular diastolic function is grade I diastolic dysfunction. Right Ventricle Right ventricular chamber dimension is normal. Right ventricular systolic function is normal and with normal TAPSE 2.3 cm. Left Atria Left atrial chamber dimension is normal. Right Atria Right atrial chamber dimension is normal. Atrial Septum Intact interatrial septum visualized by 2D, color flow and agitated saline imaging. Agitated saline injection with and without valsalva maneuver opacified right side cardiac chambers without shunt to left side cardiac chambers. Aortic Valve The aortic valve is trileaflet. There is no aortic valve stenosis. There is no aortic valve regurgitation. Pulmonic Valve There is no pulmonic regurgitation. Mitral Valve There is no mitral valve stenosis. There is mild mitral valve regurgitation. Tricuspid Valve There is no tricuspid valve regurgitation. Pericardium/Pleural There is no pericardial effusion. Inferior Vena Cava Normal inferior vena cava with >50% collapse upon inspiration consistent with normal right atrial pressure, 5 mmHg. Aorta The aortic root size at the sinus of Valsalva is normal. Left Ventricular Outflow Tract Name Value Normal LVOT 2D LVOT Diameter 1.9 cm LVOT Doppler LVOT Peak Velocity 93 cm/s LVOT Peak Gradient 3 mmHg LVOT Mean Gradient 2 mmHg LVOT VTI 21 cm LVOT VTI/AV VTI Ratio 0.9 LVOT Stroke Volume 60 ml LVOT CO 4.0 l/min LVOT CI 2.8 l/min/m2 Mitral Valve Name Value Normal MV Doppler MV Peak Gradient 3 mmHg MV Mean Gradient 1 mmHg MV Area (Cont Eq VTI) 2.6 cm2 MV Diastolic Function MV E Peak Velocity 66 cm/s MV A Peak Velocity 72 cm/s MV E/A 0.9 MV Decel Time (PW) 262 ms MV Annular TDI MV E/e' (Septal) 8.3 MV E/e' (Lateral) 5.3 MV E/e' (Average) 6.8 Tricuspid Valve Name Value Normal Estimated PAP/RSVP RA Pressure 5 mmHg <=5 TV Annular TDI TV Lateral Zo s' Velocity 13.0 cm/s >=9.5 Aortic Valve Name Value Normal AV Doppler AV Peak Velocity 103 cm/s AV Peak Gradient 3 mmHg AV Mean Gradient 2 mmHg AV VTI 22 cm AV Area (Cont Eq VTI) 2.7 cm2 >=3.0 AV Area (Cont Eq Pa) 2.6 cm2 AV DI (Pa) 0.90 AV Regurgitation 2D LVOT Area 2.9 cm2 Ventricles Name Value Normal LV Dimensions 2D/MM IVS Diastolic Thickness (2D) 0.6 cm 0.6-1.0 LVID Diastole (2D) 3.5 cm 3.8-5.2 LVIW Diastolic Thickness (2D) 0.6 cm 0.6-0.9 LVID Systole (2D) 2.4 cm 2.2-3.5 LVOT Diameter 1.9 cm LV Mass (2D Cubed) 51.23 g 67.00-162.00 LV Mass Index (2D Cubed) 36 g/m2 43-95 Relative Wall Thickness (2D) 0.33 <=0.42 LV Fractional Shortening/Ejection Fraction 2D/MM LV Fractional Shortening (2D) 32 % 27-45 LV EF (2D Teichholz) 61 % LV Diastolic Volume (4C MOD) 50 ml LV EF (4C MOD) 66 % LV Diastolic Volume (2C MOD) 44 ml LV EF (2C MOD) 66 % LV Diastolic Volume (BP MOD) 52 ml 46-106 LV Diastolic Volume Index (BP MOD) 37 ml/m2 29-61 LV Systolic Volume (BP MOD) 18 ml 14-42 LV Systolic Volume Index (BP MOD) 12 ml/m2 8-24 LV EF (BP MOD) 66 % 54-74 LV Diastolic Length (4C) 6.9 cm LV Systolic Length (4C) 5.3 cm LV Stroke Volume (4C MOD) 33 ml Atria Name Value Normal LA Dimensions LA Volume (4C A-L) 21 ml LA Volume (BP A-L) 25 ml RA Dimensions RA Systolic Major [place] Length (4C) 3.9 cm 2.2-2.8 RA Area (4C) 10.3 cm2 <=18.0 Report Signatures
--- NOTE | 2025-09-22 04:18 | PM.IMHP ---
H&P: HPI History of Present Illness Date/Time: 09/22/25 04:18 Chief Complaint: Left facial numbness and left arm and leg weakness Narrative: 60-year-old female with a past medical history of recent CVA 08/20/2025 for which she received TNK and was [facility] who presented to the ER with acute onset of new decreased sensation in her left face and heaviness of the left arm and new weakness of the left lower extremity. She reports that since her prior stroke she has had some residual fine motor deficits of her left hand and difficulty with word finding and stuttering speech specially when she becomes anxious. She has also noticed difficulty with vertigo and disequilibrium since her recent CVA that she did not recognize as a problem while she was in the hospital. But approximately 30 minutes prior to arrival to the ER on the she began having a new onset of left facial droop, sensation of numbness of the left side of her mouth, heaviness of her left upper arm and difficulty lifting her left arm and left foot. She reported that just prior to onset of the symptoms she was feeling as if her heart was racing. She does have a leave this Holter monitor in place. She felt that just prior to onset of her symptoms she was having a sensation of tinnitus in her left ear and feeling as if her pulse was throbbing in her left ear she was having some discomfort in her left neck and left posterior shoulder blade. She reports that she tends to get the symptoms when she is trying did concentrate. She denies any overt headache. She reports that she transiently felt as if she was having difficulty swallowing. She has not been having any cough after eating or drinking. She has been able to drink liquids since she cam to the ER without evidence of coughing after drinking. She has been taking her Plavix and aspirin as prescribed since discharge from [facility]. She had a echo with bubble study at [facility] that was reportedly negative for septal defect. At the time my evaluation the patient reports that her facial paresthesias have improved and almost resolved. She does still have some minimal left facial asymmetry of her mouth, she reports that her speech is unchanged from her baseline. She denies any current double vision. She states that the heaviness and weakness in her arm and has no upper extremity drift but have improved but she is still having weakness of her foot and is having persistent drift of the left lower extremity. NIH stroke scale in the ER was a 5. Review of Systems Review of Systems: 12 systems were reviewed with pertinent positives and negatives per HPI. Except as documented in the HPI, all other systems were reviewed and are negative. [facility] Past Medical History Medical History (Updated 09/22/25 @ 04:35 by Ailin Dennison DO) History of stroke 08/20/2025 treated with TNK in transferred to [facility] Lymphocytic colitis Chronic nonallergic rhinitis Body mass index (BMI) of 19.0 to 19.9 in adult Exocrine pancreatic insufficiency Lumbar degenerative disc disease (06/20/21) severe lumbar degenerative disc disease on CT of the abdomen on 06/20/2021 with 4-5 mm retrolisthesis of L2-L3 and L3-L4 Cervical disc disease (06/20/21) severe degenerative disc disease of the lower 3rd cervical spine on CT of the chest on 06/20/2021 Osteopenia after menopause Vitamin D deficiency, unspecified Vitamin B12 deficiency anemia Level low at 183 with goal greater than 400 on 05/31/2021. Level low at 233 on 05/09/2022 with hemoglobin 13.8. Irritable bowel syndrome Fibromyalgia Surgical History Surgical History (Updated 09/22/25 @ 04:35 by Ailin Dennison DO) Hx of abdominal hysterectomy Hx of tonsillectomy History of ankle surgery ORIF Hx of appendectomy Hx of colonoscopy Family History Family History Mother Hypertension Acute myocardial infarction Cerebrovascular accident Family history of malignant neoplasm Father Hypertension Family history of cardiac disorder Grandparent Cerebrovascular accident Family history of congestive heart failure, Onset Age: 84 Social History Social History (Updated 09/22/25 @ 04:37 by Ailin Dennison DO) Social History: The patient lives with her of 43 years. They raised 2 sons and a daughter. 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 She is a lifelong nonsmoker and does not drink alcohol at all. She denies any illicit substance use. Code status: Full code Surrogate decision maker: Smoking status: Never smoker Alcohol intake: never Substance use: never Substance use type: does not use Lack of Transportation: No Lack of Food: Never True Current Housing: I Have Housing Concerned About Future Housing: No Difficulty Paying Gas/Electric Bills: No Difficulty Paying for Meds: No Currently Unemployed: No Education: High School Diploma/GED Difficulty w/ Childcare or Family Care: No Spiritual care concerns: No Meds Home Medications and Allergies Home Medications ?Medication ?Instructions ?Recorded ?Confirmed ?Type estradiol 2 mg tablet 2 mg PO DAILY 11/18/19 09/21/25 History alprazolam 0.25 mg tablet (Xanax) 0.25 mg PO BID PRN Anxiety #60 tabs 04/06/25 09/21/25 Rx aspirin 81 mg chewable tablet 81 mg PO DAILY 09/21/25 09/21/25 History atorvastatin 40 mg tablet 40 mg PO QPM 09/21/25 09/21/25 History Allergies Allergy/AdvReac Type Severity Reaction Status Date / Time sulfamethoxazole Allergy Intermediate Swelling Verified 09/21/25 23:59 sulfamethizole Allergy Unknown Facial Verified 09/21/25 23:59 swelling trimethoprim Allergy Unknown Facial Verified 09/21/25 23:59 swelling Vital Signs Vital Signs - 24 hr 09/21/25 20:20 09/21/25 20:33 09/21/25 22:23 Temperature 97.8 F Pulse Rate 98 97 101 H Respiratory Rate 16 14 14 Blood Pressure 130/72 122/62 117/73 Pulse Oximetry 98 100 98 Oxygen Delivery Room Air 09/21/25 23:19 09/21/25 23:40 09/22/25 00:00 Temperature 97.8 F Pulse Rate 77 77 Respiratory Rate 20 Blood Pressure 127/63 Pulse Oximetry 97 Oxygen Delivery Room Air Exam Narrative: Weight 47.6 kg BMI 19.8 Const: Other: No acute distress, thin body habitus, sitting up in bed HENMT: Other: Mucous membranes are moist, no oral pharyngeal erythema, head is normocephalic atraumatic Eyes: Other: Pupils are equal and reactive, patient left pupil is larger than the right, left eye also has decreased ability to gaze medially, no scleral icterus, no conjunctival pallor Neck: Other: No JVD, no lymphadenopathy, no carotid bruit Resp: Other: Clear to auscultation bilaterally, no increased work of breathing Cardio: Other: Regular rate, regular rhythm, 2+ bilateral radial pedal pulses, no murmur GI: Other: Soft, nontender, nondistended, positive bowel sounds Skin: Other: No jaundice, no pallor Neuro: Other: Patient is alert orient x4, speech is stuttering with occasional difficulty with word finding, mild droop of the left nasal labial fold, minimal asymmetric pupils with left slightly greater than right, left eye a is slightly delayed in medial movement, the patient has delayed rapid alternating movements of the left hand, intact sensation of the left hand shoulder and cheek but still subjective decreased sensation of the left lips, no tongue deviation, pronator drift of the left lower extremity, 3/5 strength on plantar and dorsiflexion of the left foot, dysmetria of the left lower extremity Extrem: Other: Dysmetria of the left lower extremity, 3/5 strength on plantar flexion and dorsiflexion of the left foot, no clubbing, cyanosis or edema Psych: Other: Appropriate mood and affect, pleasant and cooperative, judgment and insight intact H&P: Results Labs Labs: Laboratory Tests 09/21/25 20:23 09/21/25 20:23 09/21/25 09/21/25 20:12 20:23 WBC 8.2 RBC 3.98 L Hgb 13.5 Hct 39.3 MCV 98.7 MCH 33.9 MCHC 34.4 RDW 12.2 Plt Count 184 MPV 10.1 Immature Gran % (Auto) 0.2 Neut % (Auto) 49.3 Lymph % (Auto) 36.3 [place] % (Auto) 6.6 Eos % (Auto) 6.7 H Baso % (Auto) 0.9 Lymph # (Auto) 2.99 [place] # (Auto) 0.5 Eos # (Auto) 0.6 H Baso # (Auto) 0.1 Abs Immat Gran (auto) 0.02 Absolute Neuts (auto) 4.1 Absolute Nucleated RBC 0.000 Nucleated RBC % 0.0 PT 12.6 INR 0.9 APTT 24.7 Sodium 139 Potassium 3.4 Chloride 102 Carbon Dioxide 27 Anion Gap 10 BUN 18 H Creatinine 0.98 Estim Creat Clear Calc Not Reportable Estimated GFR 58 L Glucose 129 H POC Capillary Glucose 131 H Calcium 9.7 Total Bilirubin 0.5 AST 28 ALT 18 Alkaline Phosphatase 48 Troponin I < 0.012 Total Protein 8.0 Albumin 4[address] 09/21/25 20:23 IMPRESSION: 1. No acute intracranial lesions in the CT head without contrast. Findings were conveyed to the attending physician at 8:28 PM. Head/Neck CTA 09/21/25 20:36 IMPRESSION: 1. Vertebral are patent in the neck on both sides. No hemodynamically significant obstruction of the carotid arteries are seen in the neck. 2. No obstructive changes of the arteries of [place]. Dural venous sinuses are patent. Chest X-Ray 09/21/25 21:00 IMPRESSION: 1. No acute pulmonary findings. EKG: On my entry interpretation Sinus tachycardia rate 111, low-voltage QRS in precordial leads, septal MS of indeterminate age, myocardial finding per persistent compared to prior EKG, QTC 406, right cardiology interpretation pending Assessment and Plan Assessment and plan (1) Acute ischemic stroke: Code(s): I63.9 - Cerebral infarction, unspecified Status: Acute (2) Current use of estrogen therapy: Code(s): Z79.818 - salvage determiner (current) use of other agents affecting estrogen receptors and estrogen levels Status: Acute (3) Intermittent palpitations: Code(s): R00.2 - Palpitations Status: Acute Plan The patient has had a suspected recurrent stroke just 32 days after prior stroke. She was not a candidate for T and K due to prior use. She does report improvement in her symptoms since admission. She still has some dysmetria the left lower extremity and left foot drop in chronic fine motor deficits of the left upper extremity with some residual facial paresthesias. Her voice pattern and stuttering is not changed compared to her initial stroke last month. Patient is on telemetry and has not had any evidence of cardiac arrhythmia. The patient also still has her Holter monitor in place. Cause for the patient's recurrent stroke is indeterminate given that she has been compliant with her Plavix and aspirin. Although oddly the patient does not have Plavix listed on her home med rec. Patient has been admitted for close monitoring of neurologic status with neuro checks. MRI of the brain and brainstem is been ordered for a.m.. Neurology has been consulted. Will await further recommendations. Will order PT and OT evaluation. Given the patient's report of difficulty swallowing and difficulty with word finding he will order speech therapy consult as well. The patient is on estrogen therapy which could cause increased risk of blood clots and theoretically possibly stroke. Will hold the patient's estrogen supplement. Will continue the patient's home Xanax for anxiety. Patient has been admitted as observation status. MEDICAL DECISION MAKING NARRATIVE -Spoke with the ED provider in detail regarding patient's evaluation, workup and management -Patient seen and examined at bedside -Collaborated with patient's nurse at the bedside in detail and addressed all concerns -Labs, electrolytes, radiology, investigations and test results personally reviewed and interpreted unless otherwise specified -ED/Consult/Nursing/Ancilliary notes on the chart reviewed and appreciated -Spoke with patient at bedside and diagnosis and plan of care was discussed. All questions answered. Quality VTE Prophylaxis VTE prophylaxis: mechanical ordered (SCDs) Hospitalist MIPS Advance Care Plan I have confirmed that the patient's Advanced Care Plan is present, code status is documented, or surrogate decision maker is listed in patient medical record.: Yes Medication Reconciliation I have utilized all available resources to obtain, update and review the patients current medications (includes all prescriptions, OTC, herbals, cannabis, and nutritional supplements).: Yes
--- NOTE | 2025-09-22 07:02 | PM.IMPN ---
Progress Note: A&P Assessment and Plan (1) Acute ischemic stroke: Code(s): I63.9 - Cerebral infarction, unspecified Status: Acute Assessment and Plan: Prior CVA 08/20/25 with fine motor deficits of her left hand and difficulty with word finding and stuttering speech, also noted difficulty with vertigo and disequilibrium New decreased sensation in her left face and heaviness of the left arm and new weakness of the left lower extremity. - Not a candidate for T and K due to prior use - Cause for the patient's recurrent stroke is indeterminate however concern for undiagnosed arrhythmia such as afib as patient endorses intermittent palpitations with increased fatigue - Head CT: No acute findings - Head/neck CTA: Vertebral are patent in the neck on both sides. No hemodynamically significant obstruction of the carotid arteries are seen in the neck.No obstructive changes of the arteries of [place]. Dural venous sinuses are patent. - MRI ordered - Echo LVEF 60-65% and grade I diastolic dysfunction - Continue atorvastatin 40 mg daily, plavix 75 mg daily and aspirin 81 mg daily - Initiate stroke protocol, NIH Stroke Scale, neuro's q.4 hours - Monitor CBC, CMP, magnesium, troponin, and lipid profile - Monitor blood pressure, allow for permissive hypertension. - Telemetry monitoring reviewed, no signs of arrhythmia patient also still has her Holter monitor in place. - Monitor blood glucose - PT/OT eval and treat - Speech therapy ordered given difficulty with swallowing and difficulty with word finding - Neurology consulted, appreciate assistance and recommendations (2) Current use of estrogen therapy: Code(s): Z79.818 - termite control service representative (current) use of other agents affecting estrogen receptors and estrogen levels Status: Acute Assessment and Plan: Patient is on estrogen therapy which could cause increased risk of blood clots and theoretically possibly stroke. Will hold the patient's estrogen supplement. Time Spent With Patient Time with patient: 25 - 35 minutes Subjective Date/time seen: 09/22/25 07:02 Interval history: 60-year-old female with a past medical history of recent CVA 08/20/2025 for which she received TNK and was [facility] who presented to the ER with acute onset of new decreased sensation in her left face and heaviness of the left arm and new weakness of the left lower extremity. Patient is pleasant sitting up in bed. She states that the heaviness to the left arm has resolved and she now only has the prior residual deficits from her recent stroke. She does endorse her face feeling odd however improved since admission. She has no other complaints denying chest pain, palpitations, shortness of breath, nausea/vomiting and abdominal pain. Review of Systems Review of Systems: All systems reviewed & are unremarkable except as noted in HPI and below Exam Narrative: AF HR 81 RR 20 SPO2 98 BP 129/60 General: female in no acute respiratory distress who is nontoxic appearing, sitting up in bed. HEENT: Normocephalic. Atraumatic. Extraocular movement intact. Sclera clear and anicteric. No facial asymmetry. Chest: Lungs are clear to auscultation bilaterally. No wheezes or crackles. CV: Heart was regular rate and rhythm. Abd: Abdomen was soft. Nontender. Nondistended. Positive bowel sounds. Ext: No clubbing, cyanosis, or edema. DP pulses bilaterally. Neuro: Patient is alert and oriented x4. Strength is 5/5 in both upper and lower extremities. Cranial nerves 2-12 are intact. Speech is clear. Objective Data Vital Signs Vital Signs: Vital Signs - 24 hr 09/21/25 20:20 09/21/25 20:33 09/21/25 22:23 Temperature 97.8 F Pulse Rate 98 97 101 H Respiratory Rate 16 14 14 Blood Pressure 130/72 122/62 117/73 Pulse Oximetry 98 100 98 Oxygen Delivery Room Air 09/21/25 23:19 09/21/25 23:40 09/22/25 00:00 Temperature 97.8 F Pulse Rate 77 77 Respiratory Rate 20 Blood Pressure 127/63 Pulse Oximetry 97 Oxygen Delivery Room Air 09/22/25 04:00 09/22/25 04:45 Temperature 98.1 F Pulse Rate 87 77 Respiratory Rate 20 Blood Pressure 129/60 Pulse Oximetry 98 Oxygen Delivery Intake/Output Intake/Output: Intake & Output 09/19/25 09/20/25 09/21/25 09/22/25 23:59 23:59 23:59 23:59 Intake Total 200 Balance 200 Meds/Results Medications: Active Medications Generic Name Dose Route Start Last Admin Trade Name Freq PRN Reason Stop Dose Admin Acetaminophen 650 mg 09/21/25 22:19 Acetaminophen 325 Mg Tablet PO Q4H PRN Mild Pain (1-3) or Fever Alprazolam 0.25 mg 09/22/25 04:46 Alprazolam (*Crx) 0.25 Mg Tablet PO BID PRN Anxiety Aspirin 81 mg 09/22/25 08:00 Aspirin 81 Mg Chewable Tablet PO DAILY@0800 LUKE Atorvastatin Calcium 40 mg 09/22/25 18:00 Atorvastatin 40 Mg Tablet PO QPM LUKE Clopidogrel Bisulfate 75 mg 09/22/25 09:00 Clopidogrel Bisulfate 75 Mg Tablet PO QAM [facility] Ondansetron HCl 4 mg 09/21/25 22:19 Ondansetron Inj 4 Mg/2 Ml Vial IV PUSH Q4H PRN Nausea Radiology Results: ITS Impressions Head CT 09/21/25 20:23 IMPRESSION: 1. No acute intracranial lesions in the CT head without contrast. Findings were conveyed to the attending physician at 8:28 PM. Head/Neck CTA 09/21/25 20:36 IMPRESSION: 1. Vertebral are patent in the neck on both sides. No hemodynamically significant obstruction of the carotid arteries are seen in the neck. 2. No obstructive changes of the arteries of [place]. Dural venous sinuses are patent. Chest X-Ray 09/21/25 21:00 IMPRESSION: 1. No acute pulmonary findings. Labs Labs: Laboratory Results - last 24 hr 09/21/25 09/21/25 20:12 20:23 WBC 8.2 RBC 3.98 L Hgb 13.5 Hct 39.3 MCV 98.7 MCH 33.9 MCHC 34.4 RDW 12.2 Plt Count 184 MPV 10.1 Immature Gran % (Auto) 0.2 Neut % (Auto) 49.3 Lymph % (Auto) 36.3 [place] % (Auto) 6.6 Eos % (Auto) 6.7 H Baso % (Auto) 0.9 Lymph # (Auto) 2.99 [place] # (Auto) 0.5 Eos # (Auto) 0.6 H Baso # (Auto) 0.1 Abs Immat Gran (auto) 0.02 Absolute Neuts (auto) 4.1 Absolute Nucleated RBC 0.000 Nucleated RBC % 0.0 PT 12.6 INR 0.9 APTT 24.7 Sodium 139 Potassium 3.4 Chloride 102 Carbon Dioxide 27 Anion Gap 10 BUN 18 H Creatinine 0.98 Estim Creat Clear Calc Not Reportable Estimated GFR 58 L Glucose 129 H POC Capillary Glucose 131 H Calcium 9.7 Total Bilirubin 0.5 AST 28 ALT 18 Alkaline Phosphatase 48 Troponin I < 0.012 Total Protein 8.0 Albumin 4.9 Quality VTE Prophylaxis VTE prophylaxis: mechanical ordered (SCDs)
[2025-09-22] MEDS: ASPIRIN 81 MG CHEWABLE TABLET PO (08:04)
[2025-09-22] MEDS: CLOPIDOGREL BISULFATE 75 MG TABLET PO (08:04)
--- NOTE | 2025-09-22 10:00 | PCSTNOTE ---
Please refer to the Bedside Swallow Evaluation in the EMR. Please note, silent aspiration cannot be ruled out at bedside. The patient is a 60 year old female admitted for possible CVA. She was previously seen for a CVA in July of 2025 and has been receiving outpatient therapy services for speech and cognition. The patient stated initial difficulty sensed yesterday with swallowing appears to have resolved at this time. The patient was positioned upright and presented the following consistencies: Thin liquid via water bottle, puree, and solid. Oral Stage was timely across consistencies. Pharyngeal stage: The patient demonstrated a timely swallow response without CSA across all consistencies. Recommend 1. Regular Diet / Level 7 2. Thin Liquid / Level 0
--- NOTE | 2025-09-22 12:01 | WPDNEURCNPN ---
Assessment and Plan Assessment and plan (1) TIA (transient ischemic attack): Code(s): G45.9 - Transient cerebral ischemic attack, unspecified Status: Acute Plan 1. Left-sided deficit by history and by emergency room visit with history of initial evaluation at the [facility] and discharged with anti-platelet medication in addition to evaluation for the intermittent atrial fibrillation. If the patient has not had the Holter monitoring for extended period that needs to be ordered and in the meantime continue both the medications such. If the echocardiogram has not been done needs to be repeated. Consult date: 09/22/25 HPI: Mecca Aleman is a 60 year old femaleAdmitted to the hospital through the emergency room for the complaints of residual left-sided deficit, dysarthria and word-finding difficulties in addition to history of having had a stroke on 20 of August [place] she was transferred to [facility] after receiving TNK. as per the information available she stayed in the ICU at [facility] for 48hours and was evaluated by the stroke team. Subsequently she was started on aspirin and Plavix and placed on heart monitor for suspected intermittent atrial fibrillation. She presented to the ER today with 6 sudden onset of stroke-like symptoms 30minutes prior to the arrival. Described as left lower extremity becoming weak along with worsening numbness in her left upper extremity and face. She complained of speech around baseline coming and going as per the . She gave no history of recent trauma but was complaining of left-sided neck pain with some difficulties in swallowing her blood sugar in the ER was 131, she had no other associated generalized symptomatology and she had been taking her medications regularly. As mentioned before her medications include aspirin 81mg daily, atorvastatin 40mg daily, and she is reportedly allergic to sulfa. She does have ongoing history of lumbar degenerative disc disease with retrolisthesis, cervical degenerative disc disease, vitamin D and B12 deficiency, irritable bowel syndrome, and fibromyalgia. She has no history of smoking and no history of alcohol consumption. Initial exam in the emergency room was documented her to have dysarthria and left upper extremity paresthesia with subtle left facial droop. Her vital signs were normal, head and neck CTA was normal, head CT was normal, routine lab studies were normal with borderline BUN of 18, Review of Systems Review of Systems: All systems reviewed & are unremarkable except as noted in HPI and below PMFSH Past Medical History Medical History (Updated 09/22/25 @ 12:11 by Enrique Morris MD) History of stroke 08/20/2025 treated with TNK in transferred to [facility] Lymphocytic colitis Chronic nonallergic rhinitis Body mass index (BMI) of 19.0 to 19.9 in adult Exocrine pancreatic insufficiency Lumbar degenerative disc disease (06/20/21) severe lumbar degenerative disc disease on CT of the abdomen on 06/20/2021 with 4-5 mm retrolisthesis of L2-L3 and L3-L4 Cervical disc disease (06/20/21) severe degenerative disc disease of the lower 3rd cervical spine on CT of the chest on 06/20/2021 Osteopenia after menopause Vitamin D deficiency, unspecified Vitamin B12 deficiency anemia Level low at 183 with goal greater than 400 on 05/31/2021. Level low at 233 on 05/09/2022 with hemoglobin 13.8. Irritable bowel syndrome Fibromyalgia Surgical History Surgical History (Updated 09/22/25 @ 04:35 by Ailin Dennison DO) Hx of abdominal hysterectomy Hx of tonsillectomy History of ankle surgery ORIF Hx of appendectomy Hx of colonoscopy Family History Family History Mother Hypertension Acute myocardial infarction Cerebrovascular accident Family history of malignant neoplasm Father Hypertension Family history of cardiac disorder Grandparent Cerebrovascular accident Family history of congestive heart failure, Onset Age: 84 Social History Social History (Updated 09/22/25 @ 04:37 by Ailin Dennison DO) Social History: The patient lives with her of 43 years. They raised 2 sons and a daughter. 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 She is a lifelong nonsmoker and does not drink alcohol at all. She denies any illicit substance use. Code status: Full code Surrogate decision maker: Smoking status: Never smoker Alcohol intake: never Substance use: never Substance use type: does not use Lack of Transportation: No Lack of Food: Never True Current Housing: I Have Housing Concerned About Future Housing: No Difficulty Paying Gas/Electric Bills: No Difficulty Paying for Meds: No Currently Unemployed: No Education: High School Diploma/GED Difficulty w/ Childcare or Family Care: No Spiritual care concerns: No Meds Home Medications and Allergies Home Medications ?Medication ?Instructions ?Recorded ?Confirmed ?Type estradiol 2 mg tablet 2 mg PO DAILY 11/18/19 09/21/25 History alprazolam 0.25 mg tablet (Xanax) 0.25 mg PO BID PRN Anxiety #60 tabs 04/06/25 09/21/25 Rx aspirin 81 mg chewable tablet 81 mg PO DAILY 09/21/25 09/21/25 History atorvastatin 40 mg tablet 40 mg PO QPM 09/21/25 09/21/25 History Allergies Allergy/AdvReac Type Severity Reaction Status Date / Time sulfamethoxazole Allergy Intermediate Swelling Verified 09/21/25 23:59 sulfamethizole Allergy Unknown Facial Verified 09/21/25 23:59 swelling trimethoprim Allergy Unknown Facial Verified 09/21/25 23:59 swelling Vital Signs Vital Signs - 24 hr 09/21/25 20:20 09/21/25 20:33 09/21/25 22:23 Temperature 36.6 C Pulse Rate 98 97 101 H Respiratory Rate 16 14 14 Blood Pressure 130/72 122/62 117/73 Pulse Oximetry 98 100 98 Oxygen Delivery Room Air 09/21/25 23:19 09/21/25 23:40 09/22/25 00:00 Temperature 36.6 C Pulse Rate 77 77 Respiratory Rate 20 Blood Pressure 127/63 Pulse Oximetry 97 Oxygen Delivery Room Air 09/22/25 04:00 09/22/25 04:45 09/22/25 08:02 Temperature 36.7 C Pulse Rate 87 77 84 Respiratory Rate 20 20 Blood Pressure 129/60 Pulse Oximetry 98 98 Oxygen Delivery Room Air 09/22/25 08:19 09/22/25 09:11 Temperature Pulse Rate Respiratory Rate Blood Pressure Pulse Oximetry Oxygen Delivery Room Air Room Air Exam Narrative: exam today revealed her to be awake alert and aware of being in the hospital, also remember that she went to [facility] for the previous stroke, his speech was not dysphasic not dysarthric not dysphonic but intermittent stuttering. Head was normocephalic with no cranial bruits, ear nose throat exam was normal, neck was supple with no cervical bruit no thyromegaly no lymphadenopathy, heart was regular with no murmur, lungs were clear to auscultation with no rhonchi or crepitations, abdomen is soft nontender with normal bowel sounds, neurological examination revealed her to be awake alert oriented with dysarthric speech but not dysphasic, pupils round regular, extraocular movements full with no nystagmus, facial sensation intact, face symmetrical, tongue midline, motor examination revealed her to have tendency to drift the left upper extremity, reflexes were symmetrical, tongue was normal, plantar responses are definitely downgoing. There was no evidence of cerebellar deficit. Results Labs 09/21/25 20:23 09/21/25 20:23 Labs: Short CBC 09/21/25 Range/Units 20:23 WBC 8.2 (4.5-10.0) K/mm3 Hgb 13.5 (12.0-15.0) g/dL Hct 39.3 (37.0-47.0) % Plt Count 184 (150-375) k/mm3 BMP 09/21/25 20:23 Sodium 139 Potassium 3.4 Chloride 102 Carbon Dioxide 27 BUN 18 H Creatinine 0.98 Glucose 129 H Calcium 9.7 Cardiac Enzymes 09/21/25 Range/Units 20:23 Troponin I < 0.012 (0.000-0.034) ng/mL Liver Function 09/21/25 Range/Units 20:23 Total Bilirubin 0.5 (0.2-1.3) mg/dL AST 28 (14-36) U/L ALT 18 (6-35) U/L Alkaline Phosphatase 48 (38-126) U/L Albumin 4.9 (3.5-5.1) g/dL
[2025-09-22] MEDS: diazePAM INJ (*CRX) 10 MG/2 ML SYRINGE 2.5 MG IV PUSH (13:55)
[2025-09-22] MEDS: ALPRAZolam (*CRX) 0.25 MG TABLET PO ×2 (13:55→21:20)
[2025-09-22] MEDS: ATORVASTATIN 40 MG TABLET PO (17:22)
[2025-09-23] VITALS: PULSE 69
[2025-09-23 04:00] VITALS: PULSE 67
[2025-09-23 04:37] LABS: Hematocrit 38.3 % (37.0-47.0); Hemoglobin 12.8 g/dL (12.0-15.0); Mean Corpuscular HGB Conc 33.4 g/dl (32-36); Mean Corpuscular Hemoglobin 33.7 pg (26-34); Mean Corpuscular Volume 100.8 fl (80-100); Platelet Count Result 186 k/mm3 (150-375); Red Blood Count 3.80 M/mm3 (4.2-5.4); White Blood Count 6.3 K/mm3 (4.5-10.0)
[2025-09-23 04:52] LABS: Alanine Aminotransferase 19 U/L (6-35); Albumin Level 4.1 g/dL (3.5-5.1); Alkaline Phosphatase 44 U/L (38-126); Anion Gap 4 mmol/L (4-12); Aspartate Amino Transferase 30 U/L (14-36); Bilirubin,Total 0.5 mg/dL (0.2-1.3); Blood Urea Nitrogen 15 mg/dL (7-17); Calcium 9.4 mg/dL (8.4-10.2); Carbon Dioxide 28 mmol/L (22-30); Chloride 104 mmol/L (98-107); Estimated CRCL calculation 59 ml/min; Estimated Glomerular Filt Rate > 60; Glucose 88 mg/dL (65-110); Potassium 4.0 mmol/L (3.4-5.0); Sodium 136 mmol/L (137-145); Total Protein 6.8 g/dL (6.3-8.2)
[2025-09-23 05:05] VITALS: BP 95/47; PULSE 66; RESP 18; TEMP 36.4; O2SAT 99
[2025-09-23] MEDS: ASPIRIN 81 MG CHEWABLE TABLET PO (07:59)
[2025-09-23 08:00] VITALS: PULSE 102
--- NOTE | 2025-09-23 08:20 | PCSTNOTE ---
09/23/25 Patient stated working on discharge plans today. Symptoms resolved and plan to continue outpatient speech therapy next week.
--- NOTE | 2025-09-23 09:09 | PM.DS ---
DS: Admitting Diagnosis Discharge Date 09/23 Admitting Diagnosis decreased sensation in her left face, new weakness of the left lower extremity- recent stroke DS: Discharge Diagnosis Discharge Diagnosis (1) Acute ischemic stroke: Code(s): I63.9 - Cerebral infarction, unspecified Status: Acute (2) Current use of estrogen therapy: Code(s): Z79.818 - nursing home (current) use of other agents affecting estrogen receptors and estrogen levels Status: Acute Assessment and Plan: DS: Summary Hospital Course Hospital Course: 60-year-old female with a past medical history of recent CVA 08/20/2025 for which she received TNK and [facility] who presented to the ER with acute onset of new decreased sensation in her left face and heaviness of the left arm and new weakness of the left lower extremity. Prior CVA 08/20/25 with fine motor deficits of her left hand and difficulty with word finding and stuttering speech, also noted difficulty with vertigo and disequilibrium New decreased sensation in her left face and heaviness of the left arm and new weakness of the left lower extremity. She has been taking her Plavix and aspirin as prescribed since [facility] from [facility]. She had a echo with bubble study at [facility] that was reportedly negative for septal defect. - Cause for the patient's recurrent stroke is indeterminate however concern for undiagnosed arrhythmia such as afib as patient endorses intermittent palpitations with increased fatigue - Head CT: No acute findings - Head/neck CTA: Vertebral are patent in the neck on both sides. No hemodynamically significant obstruction of the carotid arteries are seen in the neck.No obstructive changes of the arteries of [place]. Dural venous sinuses are patent. - MRI ordered- - Echo LVEF 60-65% and grade I diastolic dysfunction - Continue atorvastatin 40 mg daily, plavix 75 mg daily and aspirin 81 mg daily - Initiate stroke protocol, NIH Stroke Scale, neuro's q.4 hours- all had been stable and no acute concerns - Telemetry monitoring reviewed, no signs of arrhythmia patient also still has her Holter monitor in place- will have to wear it for another week prior to already scheduled f/u for rhythm review - Neurology consulted- no new orders or acute interventions # hormone replacement therapy Patient is on estrogen therapy which could cause increased risk of blood clots and theoretically possibly stroke. Will hold the patient's estrogen supplement. Pt is to f/u with prescribing provider for review of therapy and regimen adjustment Status at Discharge Functional status at discharge: independent ambulation Overall status at discharge: patient is progressing back to baseline Time Spent with Patient Time attestation: Total time spent providing and/or coordinating discharge services: Time spent: Greater than 30 minutes Exam Narrative: General: female in no acute respiratory distress who is nontoxic appearing, sitting up in bed. HEENT: Normocephalic. Atraumatic. Extraocular movement intact. Sclera clear and anicteric. No facial asymmetry. Chest: Lungs are clear to auscultation bilaterally. No wheezes or crackles. CV: Heart was regular rate and rhythm. Abd: Abdomen was soft. Nontender. Nondistended. Positive bowel sounds. Ext: No clubbing, cyanosis, or edema. DP pulses bilaterally. Neuro: Patient is alert and oriented x4. Strength is 5/5 in both upper and lower extremities. Cranial nerves 2-12 are intact. Speech is clear. Const: General: comfortable Other: No acute distress, thin body habitus, sitting up in bed HENMT: Other: Mucous membranes are moist, no oral pharyngeal erythema, head is normocephalic atraumatic Eyes: Other: Pupils are equal and reactive, patient left pupil is larger than the right, left eye also has decreased ability to gaze medially, no scleral icterus, no conjunctival pallor Neck: Other: No JVD, no lymphadenopathy, no carotid bruit Resp: Other: Clear to auscultation bilaterally, no increased work of breathing Cardio: Rate: regular rate Other: Regular rate, regular rhythm, 2+ bilateral radial pedal pulses, no murmur GI: Other: Soft, nontender, nondistended, positive bowel sounds Skin: Other: No jaundice, no pallor Neuro: Other: Patient is alert orient x4, speech is stuttering with occasional difficulty with word finding, mild droop of the left nasal labial fold, minimal asymmetric pupils with left slightly greater than right, left eye a is slightly delayed in medial movement, the patient has delayed rapid alternating movements of the left hand, intact sensation of the left hand shoulder and cheek but still subjective decreased sensation of the left lips, no tongue deviation, pronator drift of the left lower extremity, 3/5 strength on plantar and dorsiflexion of the left foot, dysmetria of the left lower extremity Extrem: Other: Dysmetria of the left lower extremity, 3/5 strength on plantar flexion and dorsiflexion of the left foot, no clubbing, cyanosis or edema Psych: Other: Appropriate mood and affect, pleasant and cooperative, judgment and insight intact DS: Data Data Completed and Pending Labs on day of discharge: Labs from last 24 hours 09/23/25 03:55 WBC 6.3 RBC 3.80 L Hgb 12.8 Hct 38.3 MCV 100.8 H MCH 33.7 MCHC 33.4 RDW 12.2 Plt Count 186 MPV 10.7 H Sodium 136 L Potassium 4.0 Chloride 104 Carbon Dioxide 28 Anion Gap 4 BUN 15 Creatinine 0.64 L Estim Creat Clear Calc 59 Estimated GFR > 60 Glucose 88 Calcium 9.4 Total Bilirubin 0.5 AST 30 ALT 19 Alkaline Phosphatase 44 Total Protein 6.8 Albumin 4.1 Discharge Plan Discharge Attending physician on discharge: Joanie Lackey Consulting providers: Amira Neumann; Lorelei Santamaria; Enrique Morris Discharging Clinician: Dianne Chappell Patient Disposition: Home Activity: february shower Diet: heart healthy Discharge Instructions: You were admitted for TIA/stroke like symptoms. Your scan came back unremarkable. Please resume your aspirin, statin and plavix, wear Holter monitor as advised. F/u with your neurologist. If you experience any TIA/Stroke like symptoms, please come back to ED for eval. Patient Instructions: Antibiotic Form, Ischemic Stroke (IP) Patient Language: Romansh Stand Alone Forms: General Discharge Information Follow-up/Referrals: Neurology [Provider Group] Referral Note: please f/u with your neurology Kareem Cohen MD [Primary Care Provider, [facility]] - 2 Weeks Discharge Medications: New clopidogrel 75 mg Tablet 75 mg PO QAM Qty: 30 0RF Continued aspirin 81 mg tablet,chewable 81 mg PO DAILY atorvastatin 40 mg tablet 40 mg PO QPM alprazolam [Xanax] 0.25 mg tablet 0.25 mg PO BID PRN (Reason: Anxiety) Qty: 60 5RF Held estradiol 2 mg tablet 2 mg PO DAILY Hold Instructions: Resume on 09/30/25. please discuss with prescribing provider Date of admission: 09/21/25 22:19 Primary Care Provider: Kareem Cohen Admitting Provider: Ailin Dennison Attending physician on admission: Ailin Dennison Condition: Stable Quality VTE Prophylaxis VTE prophylaxis: mechanical ordered (SCDs) Hospitalist MIPS Heart Failure (Exclusion) Patient has history of Heart Transplant or Left Ventricular Assistive Device?: No IF YES, STOP HERE Heart Failure (Qualifier) Patient has current or prior documentation of LVEF less than or equal to 40%, or mod/servere depressed LVSF?: No IF NO, STOP HERE
== END 2025-09-23 10:05 | disposition home or self-care (01) ==
LOC: ANHED 20:48 → ANH2MED 23:03
PROVIDERS: Student in an Organized Health Care Education/Training Program; Admitting Provider Internal Medicine; Emergency Provider Student in an Organized Health Care Education/Training Program; PCP Family Medicine; Visit Provider Internal Medicine
DX: G45.9 Transient cerebral ischemic attack, unspecified (principal); I69.328 Other speech and language deficits following cerebral infarction; I69.313 Psychomotor deficit following cerebral infarction; I34.0 Nonrheumatic mitral (valve) insufficiency; I50.30 Unspecified diastolic (congestive) heart failure; M43.16 Spondylolisthesis, lumbar region; M50.30 Other cervical disc degeneration, unspecified cervical region; E53.8 Deficiency of other specified B group vitamins; E55.9 Vitamin D deficiency, unspecified; K58.9 Irritable bowel syndrome, unspecified; M79.7 Fibromyalgia; M85.80 Other specified disorders of bone density and structure, unspecified site; K86.81 Exocrine pancreatic insufficiency; J31.0 Chronic rhinitis; Z68.1 Body mass index [BMI] 19.9 or less, adult; Z90.49 Acquired absence of other specified parts of digestive tract; Z79.890 Hormone replacement therapy; Z79.82 Long term (current) use of aspirin; Z79.02 Long term (current) use of antithrombotics/antiplatelets; Z90.710 Acquired absence of both cervix and uterus; Z82.49 Family history of ischemic heart disease and other diseases of the circulatory system; Z82.3 Family history of stroke; Z80.9 Family history of malignant neoplasm, unspecified
CPT/HCPCS: 36415; 70450; 70496; 70498; 71045; 80053; 82948; 84484; 85025; 85027; 85610; 85730; 92523; 92610; 93005; 93306; 96374; 96375; 97161; 97165; 99285; A9270; G0378; J3360; Q9967